=== PATIENT | female | born 1960 | race Caucasian/White ===

== ENCOUNTER 2019-07-16 07:57 | Outpatient (CLI) | payer BC, SELFPAY ==
--- NOTE | ~2019-07-16 | DEXA_ITS ---
Bone Density Report Name: Catherine Velázquez Age: 59 Sex: Female Ethnicity: White Date of : 1960 Indication: osteopenia; height loss; rheumatoid arthritis; Referring Provider: Ida, Marti Lawson Study: Bone densitometry was performed. Exam Date: July 16, 2019 Accession number: [id number] Bone Density: Region BMD T-score Z-score Classification AP Spine (L1-L4) 1.014 -0.3 1.0 Normal Femoral Neck (Left) 0.632 -2.0 -0.8 Osteopenia Total Hip (Left) 0.803 -1.1 -0.3 Osteopenia Total Hip Bilateral Avg 0.782 -1.3 -0.5 Osteopenia Femoral Neck (Right) 0.633 -1.9 -0.7 Osteopenia Total Hip (Right) 0.761 -1.5 -0.6 Osteopenia World Health Organization criteria for BMD impression classify patients as: Normal (T-score at or above -1.0), Osteopenia (T-score between -1.0 and -2.5), or Osteoporosis (T-score at or below -2.5). 10-year Fracture Risk(1): Major Osteoporotic Fracture 11% Hip Fracture 1.4% Reported Risk Factors: [place] (), Neck BMD=0.633, BMI=26.6, rheumatoid arthritis (1) FRAX(R) Version 3.08. Fracture probability calculated for an untreated patient. Fracture probability may be lower if the patient has received treatment. Previous Exams: Region Exam Age BMD T-score BMD Change BMD Change Date g/cm2 vs Baseline vs Previous AP Spine(L1-L4) 07/16/2019 59 1.014 -0.3 -0.154(-13.2%) -0.023(-2.3%)* 12/29/2014 54 1.037 -0.1 -0.130(-11.2%) 0.010(1.0%)# 12/02/2012 52 1.027 -0.2 -0.140(-12.0%) -0.092(-8.2%)# 08/10/2010 50 1.119 0.7 -0.048(-4.1%)* 0.002(0.2%) 06/23/2008 48 1.117 0.6 -0.050(-4.3%)* -0.050(-4.3%)* 05/29/2006 46 1.167 1.1 Total Hip(Left) 07/16/2019 59 0.803 -1.1 -0.069(-7.9%)# -0.047(-5.6%)* 12/29/2014 54 0.851 -0.7 -0.022(-2.5%)# 0.010(1.2%)# 12/02/2012 52 0.841 -0.8 -0.032(-3.6%)# -0.004(-0.4%)# 08/10/2010 50 0.845 -0.8 -0.028(-3.2%)* -0.017(-1.9%) 06/23/2008 48 0.861 -0.7 -0.011(-1.3%) -0.011(-1.3%) 05/29/2006 46 0.873 -0.6 Total Hip(Right) 07/16/2019 59 0.761 -1.5 -0.082(-9.8%)# -0.047(-5.8%)* 12/29/2014 54 0.808 -1.1 -0.035(-4.2%)# 0.037(4.9%)# 12/02/2012 52 0.770 -1.4 -0.073(-8.6%)# -0.066(-7.9%)# 08/10/2010 50 0.836 -0.9 -0.007(-0.8%) -0.004(-0.4%) 06/23/2008 48 0.840 -0.8 -0.003(-0.4%) -0.003(-0.4%) 05/29/2006 46 0.843 -0.8 *Denotes significance at 95% confidence level, LSC for AP Spine = 0.022 g/cm2, LSC for Total Hip = 0.027 g/cm2 Clinical Information Provided by Patient:
== END 2019-07-16 07:58 | disposition home or self-care (01) ==
LOC: ANHIMG 08:01
PROVIDERS: PCP Family Medicine; Visit Provider Nurse Practitioner Obstetrics & Gynecology
DX: Z78.0 Asymptomatic menopausal state (principal); M85.89 Other specified disorders of bone density and structure, multiple sites
CPT/HCPCS: 77080

== ENCOUNTER 2020-03-09 08:28 | Outpatient (CLI) | payer BC, SELFPAY ==
--- NOTE | ~2020-03-09 | MM_ITS ---
EXAMINATION: MM screening [facility] BI w gem HISTORY: Screening TECHNIQUE: Craniocaudal and mediolateral oblique 3-D tomosynthesis images were obtained and synthetic 2-D images were generated. CAD analysis was submitted and interpreted. COMPARISON: Comparison to multiple prior studies sequentially, with oldest reviewed study dated 01/12. BREAST PARENCHYMAL COMPOSITION: There are scattered areas of fibroglandular density. FINDINGS: There is no evidence of suspicious mass, calcification, or architectural distortion to sugg est malignancy in either breast. There has been no suspicious interval change. IMPRESSION: 1. No mammographic evidence of malignancy. 2. Recommend routine screening mammography in one year. BI-RADS Category 1: Negative Reviewed, dictated and finalized at location A. [employer]
== END 2020-03-09 08:29 | disposition home or self-care (01) ==
LOC: ANHIMG 08:35
PROVIDERS: PCP Family Medicine; Visit Provider Nurse Practitioner Obstetrics & Gynecology
DX: Z12.31 Encounter for screening mammogram for malignant neoplasm of breast (principal)
CPT/HCPCS: 77063; 77067

== ENCOUNTER 2020-08-21 17:46 | Emergency (ER) | payer BC, SELFPAY ==
[2020-08-21 17:55] VITALS: BP 111/83; PULSE 80; RESP 12; TEMP 35.7; O2SAT 100
--- NOTE | 2020-08-21 17:59 | ED.WOUNDLAC ---
HPI - Wound/Laceration General Chief Complaint: Wound/Laceration Stated Complaint: Lacration on finger Time Seen by Provider: 08/21/20 18:05 Source: patient and RN notes reviewed Mode of arrival: ambulatory Limitations: no limitations History of Present Illness HPI narrative: 60-year-old female presents concern for laceration to the distal end of the third digit of her left hand. Reports just prior to arrival she was cooking dinner when she cut her hand. Reports she held pressure and applied ice for close to 45 minutes and the bleeding continued. She denies decreased range of motion, sensation, strength in the digit. Reports her last tetanus shot was 9 years ago. Extremity Location: Left: hand Related Data Allergies Allergy/AdvReac Type Severity Reaction Status Date / Time erythromycin base Allergy Intermediate NAUSEA/VOMI Verified 03/24/18 11:12 TING Penicillins Allergy Mild Verified 03/24/18 11:12 doxycycline Allergy Unknown hives, Verified 03/24/18 11:12 itching Sulfa (Sulfonamide Allergy Unknown hives Verified 03/24/18 11:12 Antibiotics) MEPERIDINE HCL Allergy Mild Uncoded 03/24/18 11:12 Review of Systems Review of Systems: Narrative: CONSTITUTIONAL: Denies malaise, chills, sweats, or fever. SKIN: Reports laceration to the distal end of the third digit of the left hand MUSCULOSKELETAL: Denies musculoskeletal pain, decreased strength, decreased sensation NEUROLOGIC: Denies numbness, weakness. All systems reviewed & are unremarkable except as noted in HPI and below PMFSH Comments At time of signature, agree with nursing past medical, surgical, social and family history. There is no relevant family history pertinent to the presenting complaint Exam Narrative: Exam Narrative: GENERAL: Well-appearing, well-nourished, and in no acute distress. HEAD: Normocephalic EYES: PERRLA, conjunctivae clear NECK: Supple. CHEST: Speaks in full sentences. No respiratory distress. HEART: Regular rate and rhythm. Normal and equal peripheral pulses. EXTREMITIES: Third digit of left hand has normal strength and sensation. 5/5 strength with digit flexion, extension. Range of motion normal. No clubbing, cyanosis, or edema noted. No tenderness. Normal digital cascade with flexion of fingers, median, ulnar and radial nerve intact. Normal sensation of each side of finger. Good capillary refill and radial pulse. Distal capillary refill less than 3 seconds. SKIN: Warn, dry, intact, pink. Slightly irregular, superficial laceration noted to the distal lateral end of the third digit of the left hand, not involving the nail bed, no current bleeding NEURO: Alert and oriented x3. PSYCH: Normal mood and affect Course Course Emergency Course: Patient is aware of diagnosis, understands and agrees to treatment plan. Anticipatory guidance given. Patient agrees to follow-up as directed and is aware of reasons to seek care at the emergency department. Portions of this record may have been created with voice recognition software Vital Signs Vital signs: Vital Signs Temperature 96.2 F L 08/21/20 17:55 Pulse Rate 80 08/21/20 17:55 Respiratory Rate 12 08/21/20 17:55 Blood Pressure 111/83 08/21/20 17:55 Pulse Oximetry 100 08/21/20 17:55 Temperature 96.2 F L 08/21/20 17:55 Pulse Rate 80 08/21/20 17:55 Respiratory Rate 12 08/21/20 17:55 Blood Pressure 111/83 08/21/20 17:55 Pulse Oximetry 100 08/21/20 17:55 Reviewed. Procedures Laceration Laceration 1: Date: 08/21/20 Time: 18:10 Site: hand Side (If applicable): left Size (cm): 1 Description: irregular Depth: simple, single layer Pre-repair: irrigated ====== Skin Level ====== Skin layer closed with: dermabond ====== Subcutaneous Layer ====== ====== Muscle Layer ====== ====== Tendon Layer ====== MDM - Wound/Laceration MDM Narrative Medical decision making narrative: Ankita
[2020-08-22] MEDS: TETANUS,DIPHTHERIA,AC PERTUSSIS ADULT (0.5 ML) BOOSTRIX IM (12:57)
[2020-08-22 12:59] VITALS: BP 118/71; PULSE 101; RESP 16; TEMP 36.2; O2SAT 98
--- NOTE | 2020-08-22 13:13 | PC.NURSE ---
1255- Pt returned after f/u with RA doctor for tetanus update. No further complaints at this time.
== END 2020-08-21 18:30 | disposition home or self-care (01) ==
PROVIDERS: Emergency Provider Nurse Practitioner; PCP Family Medicine
DX: S61.213A Laceration without foreign body of left middle finger without damage to nail, initial encounter (principal); W45.8XXA Other foreign body or object entering through skin, initial encounter; Z23 Encounter for immunization; M06.9 Rheumatoid arthritis, unspecified
CPT/HCPCS: 12001; 90471; 90715; 99212; G0463

== ENCOUNTER 2021-03-27 17:21 | Outpatient (CLI) | payer BC, SELFPAY ==
--- NOTE | ~2021-03-27 | MM_ITS ---
EXAMINATION: MM screening [facility] BI w gem HISTORY: Screening mammogram TECHNIQUE: Craniocaudal and mediolateral oblique 3-D tomosynthesis images were obtained and synthetic 2-D images were generated. CAD analysis was submitted and interpreted. COMPARISON: 03/09/2020, 02/02/2019, 01/29/2018 BREAST PARENCHYMAL COMPOSITION: There are scattered areas of fibroglandular density. FINDINGS: There is no evidence of suspicious mass, calcification, or architectural distortion to sugg est malignancy in either breast. There has been no suspicious interval change. IMPRESSION: 1. No mammographic evidence of malignancy. 2. Recommend routine screening mammography in one year. BI-RADS Category 1: Negative Reviewed, dictated and finalized at location A. 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
== END 2021-03-27 17:22 | disposition home or self-care (01) ==
LOC: ANHIMG 17:22
PROVIDERS: Visit Provider Nurse Practitioner Obstetrics & Gynecology
DX: Z12.31 Encounter for screening mammogram for malignant neoplasm of breast (principal)
CPT/HCPCS: 77063; 77067

== ENCOUNTER 2022-05-23 15:15 | Outpatient (CLI) | payer BC, SELFPAY ==
--- NOTE | ~2022-05-23 | MM_ITS ---
EXAMINATION: MM screening [facility] BI w gem HISTORY: Screening mammogram TECHNIQUE: Craniocaudal and mediolateral oblique 3-D tomosynthesis images were obtained and synthetic 2-D images were generated. CAD analysis was submitted and interpreted. COMPARISON: 03/27/2021, 03/09/2020, 02/02/2019 BREAST PARENCHYMAL COMPOSITION: There are scattered areas of fibroglandular density. FINDINGS: No suspicious mass, calcification, or architectural distortion are identified in either yue ast to suggest malignancy. There has been no suspicious interval change. IMPRESSION: 1. No mammographic evidence of malignancy. 2. Recommend routine screening mammography in one year. BI-RADS Category 1: Negative Reviewed, dictated and finalized at location A. E BENDER
== END 2022-05-23 15:16 | disposition home or self-care (01) ==
PROVIDERS: Visit Provider Nurse Practitioner Obstetrics & Gynecology
DX: Z12.31 Encounter for screening mammogram for malignant neoplasm of breast (principal)
CPT/HCPCS: 77063; 77067

== ENCOUNTER 2023-06-28 14:14 | Emergency (ER) | payer BC, SELFPAY ==
[2023-06-28 14:31] VITALS: BP 136/90; PULSE 94; RESP 16; TEMP 35.9; O2SAT 99
--- NOTE | 2023-06-28 15:05 | ED.FEMALEGU ---
HPI - Female Genitourinary General Chief complaint: Urogenital-Female Stated complaint: UTI Time Seen by Provider: 06/28/23 15:05 Source: patient Mode of arrival: ambulatory Limitations: no limitations History of Present Illness HPI Narrative: 63-year-old female presents with complaint of pain, burning, itching, redness, swelling to vaginal area getting progressively worse over the last 3-4 days. Patient reports that she recently saw her primary care physician and was prescribed rectal suppositories for hemorrhoids. States that her hemorrhoids are improving. Has been sitting in a baths with Epson salts to treat hemorrhoids. Began to have itching, irritation to vaginal area so she has done to [id number] Monistat treatments. Symptoms progressed and she called her primary care physician. Was prescribed fluconazole. Took 1st pill today. Patient reports that she has a lot of pain, burning with urination. Unsure if symptoms are a yeast infection because she does not see any discharge or if something else is going on. All systems reviewed and negative except as noted above. Related Data Home Medications Medication Instructions Recorded Confirmed azelastine 0.05 % eye drops See Rx Instructions .Route .COMPLEX 08/21/20 06/28/23 folic acid 1 mg tablet 1 mg PO DAILY 08/21/20 06/28/23 hydroxychloroquine 200 mg tablet 200 mg PO DAILY 08/21/20 06/28/23 levothyroxine 50 mcg tablet 50 mcg PO DAILY 08/21/20 06/28/23 (Euthyrox) methotrexate sodium 2.5 mg tablet 2.5 mg PO DAILY 08/21/20 06/28/23 biotin 5,000 mcg disintegrating 10,000 mcg PO DAILY 10/17/21 06/28/23 tablet calcium carbonate 600 mg calcium 600 mg PO DAILY 10/17/21 06/28/23 (1,500 mg) tablet (Calcium) multivitamin (Daily Multi-Vitamin 1 tablet PO DAILY 10/17/21 06/28/23 tablet) paroxetine HCl 40 mg tablet 40 mg PO DAILY 10/17/21 06/28/23 cetirizine 10 mg capsule (Zyrtec) 10 mg PO DAILY 06/12/22 06/28/23 etanercept 50 mg/mL (1 mL) 50 mg subcut WEEKLY 06/12/22 06/28/23 subcutaneous syringe (Enbrel) nabumetone 500 mg tablet 500 mg PO BID 06/12/22 06/28/23 atorvastatin 20 mg tablet 20 mg PO DAILY 06/28/23 06/28/23 bupropion HCl 150 mg 24 hr tablet, 150 mg PO DAILY 06/28/23 06/28/23 extended release docusate sodium 100 mg capsule 100 mg PO DAILY 06/28/23 06/28/23 fluconazole 150 mg tablet 150 mg PO DAILY 06/28/23 06/28/23 hydrocortisone 2.5 % topical cream See Rx Instructions .Route .COMPLEX 06/28/23 06/28/23 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 EYES: Denies visual changes, redness, or discharge. ENT: Denies rhinorrhea, congestion, sore throat, or otalgia. CARDIOVASCULAR: Denies chest pain, palpitations, or edema. RESPIRATORY: Denies cough or dyspnea. GASTROINTESTINAL: Denies abdominal pain, nausea, vomiting, or diarrhea. GENITOURINARY: Reports dysuria. Denies hematuria. reports redness, swelling, itching, pain and to labia. SKIN: Denies rash or itching. MUSCULOSKELETAL: Denies back pain, joint pain, or myalgia. NEUROLOGIC: Denies headache, numbness, or weakness. PSYCHIATRIC: Denies anxiety or depression. All other systems reviewed are negative, except as documented in HPI. [facility] Social History Social History Smoking status: Never smoker Gender identity (if verbalized by the patient): Female Comments At time of signature, agree with nursing past medical, surgic
== END 2023-06-28 15:37 | disposition home or self-care (01) ==
PROVIDERS: Emergency Provider Nurse Practitioner Family
DX: N76.0 Acute vaginitis (principal); N39.0 Urinary tract infection, site not specified; E78.00 Pure hypercholesterolemia, unspecified; K21.9 Gastro-esophageal reflux disease without esophagitis; M06.9 Rheumatoid arthritis, unspecified; F41.9 Anxiety disorder, unspecified; E07.9 Disorder of thyroid, unspecified
CPT/HCPCS: 81003; 87070; 87086; 99213; G0463

== ENCOUNTER 2023-07-01 08:35 | Outpatient (CLI) | payer BC, SELFPAY ==
--- NOTE | ~2023-07-01 | MM_ITS ---
EXAMINATION: MM screening [facility] BI w gem HISTORY: Screening TECHNIQUE: Craniocaudal and mediolateral oblique 3-D tomosynthesis images were obtained and synthetic 2-D images were generated. CAD analysis was submitted and interpreted. COMPARISON: Comparison to multiple prior studies sequentially, with oldest reviewed study dated 01/24. BREAST PARENCHYMAL COMPOSITION: There are scattered areas of fibroglandular density. FINDINGS: There is no evidence of suspicious mass, calcification, or architectural distortion to sugg est malignancy in either breast. There has been no suspicious interval change. IMPRESSION: 1. No mammographic evidence of malignancy. 2. Recommend routine screening mammography in one year. BI-RADS Category 1: Negative Reviewed, dictated and finalized at location A. NCIAL ADVOCATE
== END 2023-07-01 08:36 | disposition home or self-care (01) ==
LOC: ANHIMG 08:36
DX: Z12.31 Encounter for screening mammogram for malignant neoplasm of breast (principal)
CPT/HCPCS: 77063; 77067

== ENCOUNTER 2023-11-25 15:14 | Outpatient (CLI) | payer BC, SELFPAY ==
--- NOTE | ~2023-11-25 | XR_ITS ---
XR hip LT min 2V Ordering provider: Jossie Burks, NEDA History: . PAIN OF LEFT HIP JOINT FOR 15+ YRS . Comparison: None. FINDINGS: BONES: No acute fracture or dislocation. HIP JOINT SPACES: Normal. SACROILIAC JOINT SPACES/LUMBAR SPINE: The sacroiliac joint spaces are normal. Mild degenerative crawley es of the visualized lower lumbar spine. PUBIC SYMPHYSIS: Normal. SOFT TISSUES: Normal. IMPRESSION: No acute osseous abnormality pelvis and left hip. Reviewed, dictated and finalized at location A.
--- NOTE | ~2023-11-25 | XR_ITS ---
EXAM: XR lumbar spine 2-3V DATE: 11/25/2023 15:35 HISTORY: PAIN OF LEFT HIP JOINT;LBP . COMPARISON: None available. FINDINGS: Cholecystomy clips. 5 nonrib-bearing lumbar-type vertebral bodies. Pedicles intact. Minimal 2 mm anterolisthesis at L3-4. Otherwise normal vertebral body alignment. Vertebral body heights pres erved. Multilevel mild disc space narrowing and marginal osteophytosis. Moderate facet hypertrophy at L2-3 and L3-4. Severe facet hypertrophy at L4-5 and L5-S1. No fracture or dislocation. Aortic athero sclerotic calcification without evident aneurysm. IMPRESSION: Grade 1 anterolisthesis at L3-4. Multilevel mild degenerative disc disease. Multilevel mo derate and severe facet arthropathy. Reviewed, dictated and finalized at location K. IMPRESSION: Grade 1 anterolisthesis at L3-4. Multilevel mild degenerative disc disease. Multilevel moderate and severe facet arthropathy.
== END 2023-11-25 15:15 | disposition home or self-care (01) ==
LOC: ANHIMG 15:15
PROVIDERS: Visit Provider Physician Assistant
DX: M43.16 Spondylolisthesis, lumbar region (principal); M51.36 Other intervertebral disc degeneration, lumbar region; M47.896 Other spondylosis, lumbar region; M47.897 Other spondylosis, lumbosacral region; M25.552 Pain in left hip
CPT/HCPCS: 72100; 73502

== ENCOUNTER 2023-12-25 06:40 | Outpatient (CLI) | payer BC, SELFPAY ==
--- NOTE | ~2023-12-25 | MR_ITS ---
EXAMINATION: MR lumbar spine wo con DATE: 12/25/2023 07:14 INDICATION: Lumbar degenerative intervertebral disc disease with chronic low back pain. TECHNIQUE: Magnetic resonance imaging (MRI) of the lumbar spine was performed without intravenous con trast. Sequences included sagittal T2-weighted FSE, sagittal T2-weighted FS FSE, sagittal T1-weighted FSE, and axial T2-weighted FSE. COMPARISON: None FINDINGS: Alignment is normal. Vertebral body heights are normal. T1 hyperintense hemangiomas at T11 L1 and L5. Otherwise normal marrow signal. Mild disc height loss and mild disc desiccation at L2-L3 through L5- S1. Annular fissure at L2-L3. The conus medullaris terminates at L2-L3. There is normal signal in the caudal spinal cord. Paravertebral soft tissues are unremarkable. The following disc levels are speci fically discussed: T12-L1: The disc does not extend beyond the endplate margin. There is mild bilateral facet joint oste oarthritis. There is no neural foraminal stenosis. There is no central canal stenosis. L1-L2: The disc does not extend beyond the endplate margin. There is mild bilateral facet joint osteo arthritis. There is no neural foraminal stenosis. There is no central canal stenosis. L2-L3: Disc is bulging. There is mild left and moderate right facet joint osteoarthritis. There is mi ld bilateral neural foraminal stenosis. There is mild central canal stenosis. L3-L4: Disc is mildly bulging. There is severe bilateral facet joint osteoarthritis. There is mild bi lateral neural foraminal stenosis. There is minimal central canal stenosis. L4-L5: Disc is mildly bulging. There is moderate left and severe right facet joint osteoarthritis. Th ere is mild bilateral neural foraminal stenosis. There is minimal central canal stenosis. L5-S1: Disc is mildly bulging. There is moderate right and severe left facet joint osteoarthritis. Th ere is mild bilateral neural foraminal stenosis. There is no central canal stenosis. IMPRESSION: 1. Mild lumbar spondylosis. Reviewed, dictated and finalized at location A. IMPRESSION: 1. Mild lumbar spondylosis.
== END 2023-12-25 06:41 | disposition home or self-care (01) ==
PROVIDERS: Visit Provider Physician Assistant
DX: M51.36 Other intervertebral disc degeneration, lumbar region (principal); M47.896 Other spondylosis, lumbar region
CPT/HCPCS: 72148

== ENCOUNTER 2024-08-24 08:48 | Outpatient (CLI) | payer BC, SELFPAY ==
--- NOTE | ~2024-08-24 | MM_ITS ---
EXAMINATION: MM screening arnoldo BI w gem HISTORY: Screening TECHNIQUE: Craniocaudal and mediolateral oblique 3-D tomosynthesis images were obtained and synthetic 2-D images were generated. CAD analysis was submitted and interpreted. COMPARISON: Comparison to multiple prior studies sequentially, with oldest reviewed study dated 01/29. BREAST PARENCHYMAL COMPOSITION: Not Dense: The breasts are almost entirely fatty. FINDINGS: There is no evidence of suspicious mass, calcification, or architectural distortion to sugg est malignancy in either breast. There has been no suspicious interval change. IMPRESSION: 1. No mammographic evidence of malignancy. 2. Recommend routine screening mammography in one year. BI-RADS Category 1: Negative Reviewed, dictated and finalized at location A.
--- OUTSIDE RECORDS SUMMARY | 2024-08-24 09:18 | XMS_ITS | Data Portability ---
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 Plan of Treatment Reminders Order Date Submit Date Provider Last Modified By Organization Details Last Modified Time Details Appointments ANY 15 2024 10:00A M NEDA Osullivan Not available Not available Not available Lab CBC 2024 025 [employer] [facility], [address], [place], [address], 06/10/2024 14:45:33 CMP, serum or plasma 2024 025 [employer] [facility], [address], [place], [address], 06/10/2024 14:45:32 TSH + free T4, serum 2024 025 [employer] [facility], [address], [place], [address], 06/10/2024 14:45:31 lipid panel, serum 2024 025 [employer] [facility], [address], [place], [address], 06/10/2024 14:45:31 CBC w/ auto diff 2023 024 [facility], [address], [place], [address], 11/22/2023 09:45:02 CMP, serum or plasma 2023 024 [facility], [address], [place], [address], 11/22/2023 09:45:01 lipid panel, serum 2023 024 [facility], [address], [place], [address], 11/22/2023 09:45:00 TSH + free T4, serum 2023 024 [facility], [address], [place], [address], 11/22/2023 09:45:00 unlisted lab - sureswab( R) advanced vaginitis plus, tma 2023 024 [facility], [address], [place], [address], 07/10/2023 22:56:42 urinalysi s, dipstick 2023 024 [facility] In-Office Order, Internal Use Only DO Not Attach Compendium DO Not Attach Compendium, Do Not Delete/merge, [id number] 07/09/2023 11:55:48 culture, urine 2023 024 [facility], [address], [place], [address], 07/10/2023 22:56:43 Referral otolaryng ologist referral 2024 025 [facility] [place] [facility], [address], [place], [address], 06/29/2024 01:27:16 Procedures None recorded. Surgeries None recorded. Imaging XR, hip, unilatera l, 2 or 3 view 2023 024 [facility], [address], [place], [address], 11/26/2023 16:53:10 XR, lumbosacr al spine, 2 or 3 view 2023 024 [facility], [address], [place], [address], 11/26/2023 17:08:09 Medication Orders bupropion HCl XL 150 mg 24 hr tablet, extended release 2024 025 [facility], [address] [place] [address], [address], 06/09/2024 11:05:46 atorvasta tin 40 mg tablet 2024 025 [facility], [address] [place] [address], [address], 06/09/2024 11:08:57 Kenalog 40 mg/mL suspensio n for injection 2023 024 Not available 06/09/2024 09:51:07 benzonata te 100 mg capsule 2023 024 [facility], [address] [address], [place], [address], 11/21/2023 10:01:13 codeine 10 mg-guaife nesin 100 mg/5 mL oral liquid 2023 024 [facility], [facility] [place], [address], 11/21/2023 10:01:16 albuterol sulfate HFA 90 mcg/actua tion aerosol inhaler 2023 025 [facility], [facility] [place], [address], 06/09/2024 10:52:51 Medrol (Dimas) 4 mg tablets in a dose pack 2023 024 [facility], [address] [place] [address], [address], 11/21/2023 10:01:27 azithromy paulette 250 mg tablet 2023 024 [facility], [address] [place] [address], [address], 11/21/2023 10:00:59 fluconazo le 150 mg tablet [address], [address] [place] [address], [address], 07/25/2023 10:19:12 hydroxyzi ne HCl 10 mg tablet [address], [address] [place] [address], [address], 07/25/2023 10:19:16 hydrocort isone 2.5 % topical cream with perineal applicato r 2023 024 [facility], [address] [place] [address], [address], 11/21/2023 10:57:27 Colace 100 mg capsule [address], [address] [place] [address], [address], 06/09/2024 10:53:02 bupropion HCl XL 150 mg 24 hr tablet, extended release 2023 025 [facility], [address] [place] [address], [address], 06/09/2024 10:53:16 Patient TargetsNo targets recorded. Patient Instructions Encounter Date Encounter Id Patient Instructions Last Modified By Organization Details Last Modified Time 06/24/2023 [id number] hemorrhoids: car e instructions [facility] Not available 06/24/2023 14:51:22 11/21/2023 [id number] A healthy lifestyle: care instructions Not available 11/21/2023 10:57:34 06/09/2024 [id number] A healthy lifestyle: care instructions Not available 06/09/2024 11:05:35 middle ear fluid : care instructions Not available 06/09/2024 11:06:01 Reason for Referral [employer] Referral fo r Middle ear effusion Referring Physician: Shashank Burks, Family Medicine, Encounter Date: 06/09/2024 Results Created Date Observation Date Name Description Value Unit Range Abnormal Flag Note LastModifiedBy Organization Detail LastModifiedTime 07/09/19 24 07/10/2023 SURES WAB(R ) ADVAN HERON VAGIN ITIS PLUS, TMA sureswab(R) adv bacterial vaginosis (bv), tma NEGATI VE negati ve normal Not Available [address], [address], 07/10/2023 22:56:42 07/09/19 24 07/10/2023 SURES WAB(R ) ADVAN HERON VAGIN ITIS PLUS, TMA lizet species NOT DETECT ED not detect ed normal Not Available [address], [address], 07/10/2023 22:56:42 07/09/19 24 07/10/2023 SURES WAB(R ) ADVAN HERON VAGIN ITIS PLUS, TMA lizet glabrata NOT DETECT ED not detect ed normal Betsy da speci es C. albic ans, C. tropi calis , C. parap jose is, and/o r C. dubli niens is can be detec bonnie, but not diffe renti ated, in the Betsy da spp. resul t. Not Available [address], [address], 07/10/2023 22:56:42 07/09/19 24 07/10/2023 SURES WAB(R ) ADVAN HERON VAGIN ITIS PLUS, TMA trichomonas vaginalis (TV), tma NOT DETECT ED not detect ed normal Not Available [address], [address], 07/10/2023 22:56:42 07/09/19 24 07/10/2023 SURES WAB(R ) ADVAN HERON VAGIN ITIS PLUS, TMA chlamydia trachomatis RNA, tma, urogenital NOT DETECT ED not detect ed normal Not Available [facility] [address] [address] [place], [address], 07/10/2023 22:56:42 07/09/19 24 07/10/2023 SURES WAB(R ) ADVAN HERON VAGIN ITIS PLUS, TMA neisseria gonorrhoeae RNA, tma, urogenital NOT DETECT ED not detect ed normal For addit ional rogelio clayton refer to https ://ed ati on.qu pamJobSpice/f aq/FA Q154 (This link is being provi ded for maxim pepe/ xavier ordaz purpo ses only. ) Not Available [address], [address], 07/10/2023 22:56:42 07/09/19 24 07/10/2023 CULTU RE, URINE , ROUTI NE culture, urine, routine SEE NOTE CULTU RE, URINE , ROUTI NE Micro Numbe r: [id number] Test Statu s: Final Speci men Sourc e: Urine Speci men Quali ty: Adequ ate Resul t: No Growt h Not Available [address], [address], 07/10/2023 22:56:43 07/09/19 24 07/09/2023 urina lysis , dipst ick Leukocytes Trace Not Available In-Offi ce Order Internal Use Only DO Not Attach Compendium DO Not Attach Compendium, Do Not Delete/merge, [id number] 07/09/2023 10:48:57 07/09/19 24 07/09/2023 urina lysis , dipst ick Nitrite negati ve Not Available In-Office Order Internal Use Only DO Not Attach Compendium DO Not Attach Compendium, Do Not Delete/merge, 07/09/2023 10:48:57 07/09/19 24 07/09/2023 urina lysis , dipst ick Urobilinogen .2 Not Available In-Of fice Order Internal Use Only DO Not Attach Compendium DO Not Attach Compendium, Do Not Delete/merge, 07/09/2023 10:48:57 07/09/19 24 07/09/2023 urina lysis , dipst ick Protein Trace Not Available In-Office Order Internal Use Only DO Not Attach Compendium DO Not Attach Compendium, Do Not Delete/merge, 07/09/2023 10:48:57 07/09/19 24 07/09/2023 urina lysis , dipst ick pH 5.5 Not Available In-Office Order Internal Use Only DO Not Attach Compendium DO Not Attach Compendium, Do Not Delete/merge, 07/09/2023 10:48:57 07/09/19 24 07/09/2023 urina lysis , dipst ick Blood Negati ve Not Available In-Office Order Internal Use Only DO Not Attach Compendium DO Not Attach Compendium, Do Not Delete/merge, 07/09/2023 10:48:57 07/09/19 24 07/09/2023 urina lysis , dipst ick Specific [place] 1.030 Not Available In-Off ice Order Internal Use Only DO Not Attach Compendium DO Not Attach Compendium, Do Not Delete/merge, 07/09/2023 10:48:57 07/09/19 24 07/09/2023 urina lysis , dipst ick Ketone Trace Not Available In-Office Order Internal Use Only DO Not Attach Compendium DO Not Attach Compendium, Do Not Delete/merge, 07/09/2023 10:48:57 07/09/19 24 07/09/2023 urina lysis , dipst ick Bilirubin Negati ve Not Available In-Office Order Internal Use Only DO Not Attach Compendium DO Not Attach Compendium, Do Not Delete/merge, 2024 10:48:57 07/09/19 24 07/09/2023 urina lysis , dipst ick Glucose Negati ve Not Available In-Office Order Internal Use Only DO Not Attach Compendium DO Not Attach Compendium, Do Not Delete/merge, [id number] 07/09/2023 10:48:57 07/09/19 24 07/09/2023 urina lysis , dipst ick Appearance Clear Not Available In-Offi ce Order Internal Use Only DO Not Attach Compendium DO Not Attach Compendium, Do Not Delete/merge, [id number] 07/09/2023 10:48:57 07/09/19 24 07/09/2023 urina lysis , dipst ick Color Yellow Not Available In-Office Order Internal Use Only DO Not Attach Compendium DO Not Attach Compendium, Do Not Delete/merge, 07/09/2023 10:48:57 11/21/19 24 11/22/2023 LIPID PANEL , STAND OLINDA cholesterol, total 169 mg/dL <200 normal Not Available [address], [address], 11/22/2023 09:44:59 11/21/19 24 11/22/2023 LIPID PANEL , STAND OLINDA HDL cholesterol 66 mg/dL > or = 50 normal Not Available [address] [place], [address], 11/22/2023 09:44:59 11/21/19 24 11/22/2023 LIPID PANEL , STAND OLINDA triglyceride s 205 mg/dL <150 high If a non-f astin g speci men was colle cted, consi ambar repea t trigl yceri de testi ng on a fasti ng speci men if clini kevin indic ated. Kevin de la rosa et al. J. of Clin. Lipid ol. 2015; 9:129 -169. Not Available [address] [address] [place], [address], 11/22/2023 09:44:59 11/21/19 24 11/22/2023 LIPID PANEL , STAND OLINDA LDL-choleste rol 73 mg/dL _(erasto c) normal Refer ence range : <100 Kayla able range <100 mg/dL for prima ry preve ntion ; <70 mg/dL for patie nts with CHD or diabe tic patie nts with > or = 2 CHD risk facto rs. LDL-C is now calcu lated using the [facility] n-Hop kins calcu yuki n, which is a valid ated novel metho d provi mercedes tommy r accur acy than the Fried clayton equat ion in the estim ation of LDL-C . Conchita pepe SS et al. ANDREW. 2013; 310(1 9): 2061- 2068 (http ://ed ucati on.Key Ring. SlapVid/f aq/FA Q164) Not Available [facility] [address] [address] [place], [address], 11/22/2023 09:44:59 11/21/19 24 11/22/2023 LIPID PANEL , STAND OLINDA chol/HDLC ratio 2.6 (calc ) <5.0 normal Not Available [employer] [address] [address] [place], [address], 11/22/2023 09:44:59 11/21/19 24 11/22/2023 LIPID PANEL , STAND OLINDA non HDL cholesterol 103 mg/dL _(erasto c) <130 normal For patie nts with diabe leslee plus 1 major ASCVD risk facto r, treat ing to a non-H DL-C goal of <100 mg/dL (LDL- C of <70 mg/dL ) is consi dered a thera peuti c optio n. Not Available [employer] [address] [address] [place], [address], 11/22/2023 09:44:59 11/21/1911/22/2023 TSH+F REE T4 TSH 1.03 mIU/L 0.40-4 .50 normal Not Available [employer] [address] [address] [place], [address], 11/22/2023 09:45:00 11/21/19 24 11/22/2023 TSH+F REE T4 T4, free 1.1 NG/dL 0.8-1. 8 normal Not Available [address], [address], 11/22/2023 09:45:00 11/21/19 24 11/22/2023 COMPR EHENS KRYSTINA METAB OLIC PANEL glucose 75 mg/dL 65-99 normal Fasti ng refer ence inter riana Not Available [address], [address], 11/22/2023 09:45:01 11/21/19 24 11/22/2023 COMPR EHENS KRYSTINA METAB OLIC PANEL urea nitrogen (BUN) 15 mg/dL 7-25 normal Not Available [address], [address], 11/22/2023 09:45:01 11/21/19 24 11/22/2023 COMPR EHENS KRYSTINA METAB OLIC PANEL creatinine 1.05 mg/dL 0.50-1 .05 normal Not Available [address], [address], 11/22/2023 09:45:01 11/21/19 24 11/22/2023 COMPR EHENS KRYSTINA METAB OLIC PANEL eGFR 60 mL/mi n/1.7 3m2 > or = 60 normal Not Available [address], [address], 11/22/2023 09:45:01 11/21/19 24 11/22/2023 COMPR EHENS KRYSTINA METAB OLIC PANEL BUN/creatini ne ratio SEE NOTE: (calc ) 6-22 Not Repor bonnie: BUN and Creat inine are withi n refer ence range . Not Available [address], [address], 11/22/2023 09:45:01 11/21/19 24 11/22/2023 COMPR EHENS KRYSTINA METAB OLIC PANEL sodium 143 mmol/ L 135-14 6 normal Not Available [address], [address], 11/22/2023 09:45:01 11/21/19 24 11/22/2023 COMPR EHENS KRYSTINA METAB OLIC PANEL potassium 4.6 mmol/ L 3.5-5. 3 normal Not Available [address], [address], 11/22/2023 09:45:01 11/21/19 24 11/22/2023 COMPR EHENS KRYSTINA METAB OLIC PANEL chloride 107 mmol/ L 98-110 normal Not Available [address], [address], 11/22/2023 09:45:01 11/21/19 24 11/22/2023 COMPR EHENS KRYSTINA METAB OLIC PANEL carbon dioxide 28 mmol/ L 20-32 normal Not Available [address], [address], 11/22/2023 09:45:01 11/21/19 24 11/22/2023 COMPR EHENS KRYSTINA METAB OLIC PANEL calcium 9.2 mg/dL 8.6-10 .4 normal Not Available [address], [address], 11/22/2023 09:45:01 11/21/19 24 11/22/2023 COMPR EHENS KRYSTINA METAB OLIC PANEL protein, total 6.3 g/dL 6.1-8. 1 normal Not Available [address], [address], 11/22/2023 09:45:01 11/21/19 24 11/22/2023 COMPR EHENS KRYSTINA METAB OLIC PANEL albumin 4.2 g/dL 3.6-5. 1 normal Not Available [address] [place], [address], 11/22/2023 09:45:01 11/21/19 24 11/22/2023 COMPR EHENS KRYSTINA METAB OLIC PANEL globulin 2.1 g/dL_ (calc ) 1.9-3. 7 normal Not Available [address], [address], 11/22/2023 09:45:01 11/21/19 24 11/22/2023 COMPR EHENS KRYSTINA METAB OLIC PANEL albumin/glob ulin ratio 2.0 (calc ) 1.0-2. 5 normal Not Available [address], [address], 11/22/2023 09:45:01 11/21/19 24 11/22/2023 COMPR EHENS KRYSTINA METAB OLIC PANEL bilirubin, total 0.3 mg/dL 0.2-1. 2 normal Not Available [address], [address], 11/22/2023 09:45:01 11/21/19 24 11/22/2023 COMPR EHENS KRYSTINA METAB OLIC PANEL alkaline phosphatase 69 U/L 37-153 normal Not Available [address], [address], 11/22/2023 09:45:01 11/21/19 24 11/22/2023 COMPR EHENS KRYSTINA METAB OLIC PANEL AST 18 U/L 10-35 normal Not Available [address], [address], 11/22/2023 09:45:01 11/21/19 24 11/22/2023 COMPR EHENS KRYSTINA METAB OLIC PANEL ALT 15 U/L 6-29 normal Not Available [address], [address], 11/22/2023 09:45:01 11/21/19 24 11/22/2023 CBC (INCL UDES DIFF/ PLT) white blood cell count 5.0 thous and/u L 3.8-10 .8 normal Not Available [address], [address], 11/22/2023 09:45:02 11/21/19 24 11/22/2023 CBC (INCL UDES DIFF/ PLT) red blood cell count 4.13 xander on/uL 3.80-5 .10 normal Not Available [address], [address], 11/22/2023 09:45:02 11/21/19 24 11/22/2023 CBC (INCL UDES DIFF/ PLT) hemoglobin 14.4 g/dL 11.7-1 5.5 normal Not Available [address], [address], 11/22/2023 09:45:02 11/21/19 24 11/22/2023 CBC (INCL UDES DIFF/ PLT) hematocrit 42.6 % 35.0-4 5.0 normal Not Available [address], [address], 11/22/2023 09:45:02 11/21/19 24 11/22/2023 CBC (INCL UDES DIFF/ PLT) MCV 103.1 fL 80.0-1 00.0 high Not Available [address], [address], 11/22/2023 09:45:02 11/21/19 24 11/22/2023 CBC (INCL UDES DIFF/ PLT) MCH 34.9 pg 27.0-3 3.0 high Not Available [address], [address], 11/22/2023 09:45:02 11/21/19 24 11/22/2023 CBC (INCL UDES DIFF/ PLT) MCHC 33.8 g/dL 32.0-3 6.0 normal Not Available [address], [address], 11/22/2023 09:45:02 11/21/19 24 11/22/2023 CBC (INCL UDES DIFF/ PLT) RDW 12.1 % 11.0-1 5.0 normal Not Available [address], [address], 11/22/2023 09:45:02 11/21/19 24 11/22/2023 CBC (INCL UDES DIFF/ PLT) platelet count 207 thous and/u L 140-40 0 normal Not Available [address], [address], 11/22/2023 09:45:02 11/21/19 24 11/22/2023 CBC (INCL UDES DIFF/ PLT) MPV 9.8 fL 7.5-12 .5 normal Not Available [address], [address], 11/22/2023 09:45:02 11/21/19 24 11/22/2023 CBC (INCL UDES DIFF/ PLT) absolute neutrophils 2390 cells /uL 1500-7 800 normal Not Available [address], [address], 11/22/2023 09:45:02 11/21/19 24 11/22/2023 CBC (INCL UDES DIFF/ PLT) absolute lymphocytes 2095 cells /uL 850-39 00 normal Not Available [address], [address], 11/22/2023 09:45:02 11/21/19 24 11/22/2023 CBC (INCL UDES DIFF/ PLT) absolute monocytes 485 cells /uL 200-95 0 normal Not Available [address], [address], 11/22/2023 09:45:02 11/21/19 24 11/22/2023 CBC (INCL UDES DIFF/ PLT) absolute eosinophils 0 cells /uL 15-500 low Not Available [address], [address], 11/22/2023 09:45:02 11/21/19 24 11/22/2023 CBC (INCL UDES DIFF/ PLT) absolute basophils 30 cells /uL 0-200 normal Not Available [facility] [address], [address], 11/22/2023 09:45:02 11/21/19 24 11/22/2023 CBC (INCL UDES DIFF/ PLT) neutrophils 47.8 % normal Not Available [facility] [address], [address], 11/22/2023 09:45:02 11/21/19 24 11/22/2023 CBC (INCL UDES DIFF/ PLT) lymphocytes 41.9 % normal Not Available [facility] [address], [address], 11/22/2023 09:45:02 11/21/19 24 11/22/2023 CBC (INCL UDES DIFF/ PLT) monocytes 9.7 % normal Not Available [facility] [address], [address], 11/22/2023 09:45:02 11/21/19 24 11/22/2023 CBC (INCL UDES DIFF/ PLT) eosinophils 0.0 % normal Not Available [facility] [address], [address], 11/22/2023 09:45:02 11/21/19 24 11/22/2023 CBC (INCL UDES DIFF/ PLT) basophils 0.6 % normal Not Available [facility] [address], [address], 11/22/2023 09:45:02 02/12/20 24 02/12/2024 LIPID PANEL , STAND OLINDA cholesterol, total 166 mg/dL <200 normal Not Available [address] [address] [place], [address], 02/12/2024 17:33:53 02/12/20 24 02/12/2024 LIPID PANEL , STAND OLINDA HDL cholesterol 72 mg/dL > or = 50 normal Not Available [address] [address] [place], [address], 02/12/2024 17:33:53 02/12/20 24 02/12/2024 LIPID PANEL , STAND OLINDA triglyceride s 134 mg/dL <150 normal Not Available [address] [address] [place], [address], 02/12/2024 17:33:53 02/12/20 24 02/12/2024 LIPID PANEL , STAND OLINDA LDL-choleste rol 72 mg/dL _(erasto c) normal Refer ence range : <100 Kayla able range <100 mg/dL for prima ry preve ntion ; <70 mg/dL for patie nts with CHD or diabe tic patie nts with > or = 2 CHD risk facto rs. LDL-C is now calcu lated using the [place] n-Hop kins calcu yuki n, which is a valid ated novel metho d provi ding tommy r accur acy than the Fried clayton equat ion in the estim ation of LDL-C . Conchita pepe SS et al. ANDREW. 2013; 310(1 9): 2061- 2068 (http ://ed ucati on.Qu Kaela Cannonballs. com/f aq/FA Q164) Not Available [facility] [address] [address] [place], [address], 02/12/2024 17:33:53 02/12/20 24 02/12/2024 LIPID PANEL , STAND OLINDA chol/HDLC ratio 2.3 (calc ) <5.0 normal Not Available [address] [address] [place], [address], 02/12/2024 17:33:53 02/12/20 24 02/12/2024 LIPID PANEL , STAND OLINDA non HDL cholesterol 94 mg/dL _(erasto c) <130 normal For patie nts with diabe leslee plus 1 major ASCVD risk facto r, treat ing to a non-H DL-C goal of <100 mg/dL (LDL- C of <70 mg/dL ) is consi zina abbott optio n. Not Available [address] [address] [place], [address], 02/12/2024 17:33:53 02/12/20 24 02/12/2024 AST AST 22 U/L 10-35 normal Not Available [address] [address] [place], [address], 02/12/2024 17:33:54 06/09/19 25 06/10/2024 LIPID PANEL , STAND OLINDA cholesterol, total 167 mg/dL <200 normal Not Available [address] [address] [place], [address], 06/10/2024 14:45:31 06/09/19 25 06/10/2024 LIPID PANEL , STAND OLINDA HDL cholesterol 70 mg/dL > or = 50 normal Not Available [facility] [address] [address] [place], [address], 06/10/2024 14:45:31 06/09/19 25 06/10/2024 LIPID PANEL , STAND OLINDA triglyceride s 153 mg/dL <150 high Not Available [facility] [address] [address] [place], [address], 06/10/2024 14:45:31 06/09/19 25 06/10/2024 LIPID PANEL , STAND OLINDA LDL-choleste rol 73 mg/dL _(erasto c) normal Refer ence range : <100 Kayla able range <100 mg/dL for prima ry preve ntion ; <70 mg/dL for patie nts with CHD or diabe tic patie nts with > or = 2 CHD risk facto rs. LDL-C is now calcu lated using the [facility] kins belkis pepe, which is a valid ated novel chilo morse than the Fried clayton bansalyojana ion in the estim ation of LDL-C . Conchita pepe SS et al. ANDREW. 2013; 310(1 9): 2061- 2068 (http ://ed ucati on.Qu pamDi Cannonballs. com/f aq/FA Q164) Not Available [facility] [address] [address] [place], [address], 06/10/2024 14:45:31 06/09/19 25 06/10/2024 LIPID PANEL , STAND OLINDA chol/HDLC ratio 2.4 (calc ) <5.0 normal Not Available [address], [address], 06/10/2024 14:45:31 06/09/19 25 06/10/2024 LIPID PANEL , STAND OLINDA non HDL cholesterol 97 mg/dL _(erasto c) <130 normal For patie nts with diabe leslee plus 1 major ASCVD risk facto r, treat ing to a non-H DL-C goal of <100 mg/dL (LDL- C of <70 mg/dL ) is celena chavarriao n. Not Available [facility] [address], [address], 06/10/2024 14:45:31 06/09/19 25 06/10/2024 TSH+F REE T4 TSH 1.30 mIU/L 0.40-4 .50 normal Not Available [facility] [address], [address], 06/10/2024 14:45:31 06/09/19 25 06/10/2024 TSH+F REE T4 T4, free 1.4 NG/dL 0.8-1. 8 normal Not Available [facility] [address] [place], [address], 06/10/2024 14:45:31 06/09/19 25 06/10/2024 COMPR EHENS KRYSTINA METAB OLIC PANEL glucose 101 mg/dL 65-99 high Fasti ng refer ence inter riana For someo ne witho ut known diabe leslee, a gluco se value betwe en 100 and 125 mg/dL is consi stent with predi abete s and shoul d be confi rmed with a follo w-up test. Not Available [address], [address], 06/10/2024 14:45:32 06/09/19 25 06/10/2024 COMPR EHENS KRYSTINA METAB OLIC PANEL urea nitrogen (BUN) 14 mg/dL 7-25 normal Not Available [address], [address], 06/10/2024 14:45:32 06/09/19 25 06/10/2024 COMPR EHENS KRYSTINA METAB OLIC PANEL creatinine 0.93 mg/dL 0.50-1 .05 normal Not Available [facility] [address], [address], 06/10/2024 14:45:32 06/09/19 25 06/10/2024 COMPR EHENS KRYSTINA METAB OLIC PANEL eGFR 69 mL/mi n/1.7 3m2 > or = 60 normal Not Available [facility] [address], [address], 06/10/2024 14:45:32 06/09/19 25 06/10/2024 COMPR EHENS KRYSTINA METAB OLIC PANEL BUN/creatini ne ratio SEE NOTE: (calc ) 6-22 Not Repor bonnie: BUN and Creat inine are withi n refer ence range . Not Available [facility] [address], [address], 06/10/2024 14:45:32 06/09/19 25 06/10/2024 COMPR EHENS KRYSTINA METAB OLIC PANEL sodium 140 mmol/ L 135-14 6 normal Not Available [address], [address], 06/10/2024 14:45:32 06/09/19 25 06/10/2024 COMPR EHENS KRYSTINA METAB OLIC PANEL potassium 4.5 mmol/ L 3.5-5. 3 normal Not Available [address], [address], 06/10/2024 14:45:32 06/09/19 25 06/10/2024 COMPR EHENS KRYSTINA METAB OLIC PANEL chloride 104 mmol/ L 98-110 normal Not Available [address], [address], 06/10/2024 14:45:32 06/09/19 25 06/10/2024 COMPR EHENS KRYSTINA METAB OLIC PANEL carbon dioxide 25 mmol/ L 20-32 normal Not Available [address], [address], 06/10/2024 14:45:32 06/09/19 25 06/10/2024 COMPR EHENS KRYSTINA METAB OLIC PANEL calcium 9.6 mg/dL 8.6-10 .4 normal Not Available [address], [address], 06/10/2024 14:45:32 06/09/19 25 06/10/2024 COMPR EHENS KRYSTINA METAB OLIC PANEL protein, total 6.7 g/dL 6.1-8. 1 normal Not Available [address], [address], 06/10/2024 14:45:32 06/09/19 25 06/10/2024 COMPR EHENS KRYSTINA METAB OLIC PANEL albumin 4.3 g/dL 3.6-5. 1 normal Not Available [address], [address], 06/10/2024 14:45:32 06/09/19 25 06/10/2024 COMPR EHENS KRYSTINA METAB OLIC PANEL globulin 2.4 g/dL_ (calc ) 1.9-3. 7 normal Not Available [address], [address], 06/10/2024 14:45:32 06/09/19 25 06/10/2024 COMPR EHENS KRYSTINA METAB OLIC PANEL albumin/glob ulin ratio 1.8 (calc ) 1.0-2. 5 normal Not Available [address], [address], 06/10/2024 14:45:32 06/09/19 25 06/10/2024 COMPR EHENS KRYSTINA METAB OLIC PANEL bilirubin, total 0.5 mg/dL 0.2-1. 2 normal Not Available [address], [address], 06/10/2024 14:45:32 06/09/19 25 06/10/2024 COMPR EHENS KRYSTINA METAB OLIC PANEL alkaline phosphatase 79 U/L 37-153 normal Not Available [address], [address], 06/10/2024 14:45:32 06/09/19 25 06/10/2024 COMPR EHENS KRYSTINA METAB OLIC PANEL AST 21 U/L 10-35 normal Not Available [address], [address], 06/10/2024 14:45:32 06/09/19 25 06/10/2024 COMPR EHENS KRYSTINA METAB OLIC PANEL ALT 17 U/L 6-29 normal Not Available [address], [address], 06/10/2024 14:45:32 06/09/19 06/10/2024 CBC (H/H, RBC, INDIC ES, WBC, PLT) white blood cell count 7.2 thous and/u L 3.8-10 .8 normal Not Available [address], [address], 06/10/2024 14:45:33 06/09/19 25 06/10/2024 CBC (H/H, RBC, INDIC ES, WBC, PLT) red blood cell count 4.20 xander on/uL 3.80-5 .10 normal Not Available [address], [address], 06/10/2024 14:45:33 06/09/19 25 06/10/2024 CBC (H/H, RBC, INDIC ES, WBC, PLT) hemoglobin 14.7 g/dL 11.7-1 5.5 normal Not Available [facility] [address], [address], 06/10/2024 14:45:33 06/09/19 25 06/10/2024 CBC (H/H, RBC, INDIC ES, WBC, PLT) hematocrit 42.9 % 35.0-4 5.0 normal Not Available [facility] [address], [address], 06/10/2024 14:45:33 06/09/19 25 06/10/2024 CBC (H/H, RBC, INDIC ES, WBC, PLT) MCV 102.1 fL 80.0-1 00.0 high Not Available [facility] [address], [address], 06/10/2024 14:45:33 06/09/19 25 06/10/2024 CBC (H/H, RBC, INDIC ES, WBC, PLT) MCH 35.0 pg 27.0-3 3.0 high Not Available [facility] [address], [address], 06/10/2024 14:45:33 06/09/19 25 06/10/2024 CBC (H/H, RBC, INDIC ES, WBC, PLT) MCHC 34.3 g/dL 32.0-3 6.0 normal For adult s, a sligh t decre ase in the calcu lated MCHC value (in the range of 30 to 32 g/dL) is most likel y not clini kevin signi lucas t; hima er, it shoul d be inter prete d with cauti on in corre latio n with other red cell jeff eters and the patie nt's clini erasto condi tion. Not Available [facility] [address], [address], 06/10/2024 14:45:33 06/09/19 25 06/10/2024 CBC (H/H, RBC, INDIC ES, WBC, PLT) RDW 12.3 % 11.0-1 5.0 normal Not Available [facility] [address], [address], 06/10/2024 14:45:33 06/09/19 25 06/10/2024 CBC (H/H, RBC, INDIC ES, WBC, PLT) platelet count 237 thous and/u L 140-40 0 normal Not Available [facility] [address], [address], 06/10/2024 14:45:33 06/09/19 25 06/10/2024 CBC (H/H, RBC, INDIC ES, WBC, PLT) MPV 10.5 fL 7.5-12 .5 normal Not Available [facility] [address], [address], 06/10/2024 14:45:33 07/02/19 24 07/01/2023 sudeep CURRAN, loren al, david whitaker No observ ation record ed. [email or web address] [place] [address], [place], [address], 07/09/2023 10:21:34 11/26/19 24 11/25/2023 XR, hip, unila teral , 2 or 3 view No observ ation record ed. [address], [place], [address], 11/29/2023 19:15:43 11/26/19 24 11/25/2023 XR, lumbo sacra l spine , 2 or 3 view No observ ation record ed. [address], [place], [address], 11/29/2023 19:15:43 12/25/19 24 12/25/2023 MRI, lumba r spine , w/o contr ast No observ ation record ed. [address], [place], [address], 12/25/2023 16:28:42 Result Notes None recorded. Problems Name Problem SNOMED Code Status Onset Date Resolution Date Notes Provider Name and Address Organization Details Recorded Time Rheumato id laura s [id number] Active 2017 NEDA Peña Attn: Accounting ,[address] [place], [address] , [facility] 8 12:23:48 Polyp of colon 43209255 Active 2020 repeat colonosc opy 10/2025 Quita Neville MD Attn: Accounting ,[address] [place], [address] , [place] [facility] 1 23:21:10 Rectal polypect lu Active 2023 hyperpla stic Quita Neville MD Attn: Accounting ,[address] [place], [address] , [place] [facility] 4 07:43:54 Allergic rhinitis caused by pollen 20011820 Completed 201101/19/2012 Location : None;Sev erity: Moderate ;Progres s: Stable;A dded By: Ade Sanchez;Add to Current Problems : NO Not Available [facility] 7 10:19:26 Tobacco dependen ce syndrome [id number] Completed 201101/19/2012 Location : None;Sev erity: Moderate ;Progres s: Stable;A dded By: Ade Sanchez;Add to Current Problems : NO Not Available [facility] 7 10:19:26 Headache [id number] Completed 201204/03/2013 Location : None;Sev erity: Moderate ;Progres s: Stable;A dded By: Hanny Flores;Add to Current Problems : NO Not Available [facility] 7 10:19:26 Acute upper respirat ory infectio n of multiple sites Completed 201411/28/2014 Location : None;Sev erity: Moderate ;Progres s: Stable;A dded By: Hanny Flores;Add to Current Problems : YES Not Available [facility] 7 10:19:26 Low back pain [id number] Completed 201107/24/2017 Location : None;Sev erity: Moderate ;Progres s: Stable;A dded By: Ade Sanchez;Add to Current Problems : NO NEDA Peña Attn: Accounting ,[address] [place], [address] , [facility] 8 12:23:19 Migraine variants 041222231 Active 2012 Location : None;Sev erity: Moderate ;Progres s: Stable;A dded By: Ade Sanchez;Add to Current Problems : NO Not Available [facility] 7 10:19:26 Allergy Completed 201307/24/2017 Location : None;Sev erity: Moderate ;Progres s: Stable;A dded By: Ade Sanchez;Add to Current Problems : NO NEDA Peña Attn: Accounting ,[address] [place], [address] , [facility] 8 12:23:41 Contact dermatit is [id number] Completed 201301/13/2014 Location : None;Sev erity: Moderate ;Progres s: Stable;A dded By: Ade Sanchez;Add to Current Problems : NO Not Available [facility] 7 10:19:26 Acute maxillar y sinusiti s [id number] Completed 201412/27/2014 Location : None;Sev erity: Moderate ;Progres s: Stable;A dded By: Ade Sanchez;Add to Current Problems : YES Not Available [facility] 7 10:19:26 Pruritic disorder [id number] Completed 201401/10/2015 Location : None;Sev erity: Moderate ;Progres s: Stable;A dded By: Ade Sanchez;Add to Current Problems : YES Not Available [facility] 7 10:19:26 Pure hypergly ceridemi a 273116797 Active 2012 Location : None;Sev erity: Moderate ;Progres s: Stable;A dded By: Ade Sanchez;Add to Current Problems : YES Not Available [facility] 7 10:19:26 Viral screenin g Completed 201401/10/2015 Location : None;Sev erity: Moderate ;Progres s: Stable;A dded By: Ade Sanchez;Add to Current Problems : YES Not Available [facility] 7 10:19:26 Cough [id number] Completed 201401/10/2015 Location : None;Sev erity: Moderate ;Progres s: Stable;A dded By: Ade Sanchez;Add to Current Problems : YES Not Available [facility] 7 10:19:26 Hypothyr oidism 97094957 Active 2012 Location : None;Sev erity: Moderate ;Progres s: Stable;A dded By: Ade Sanchez;Add to Current Problems : YES Not Available [facility] 7 10:19:26 Enthesop athy of hip region [id number] Completed 201501/13/2016 Location : None;Sev erity: Moderate ;Progres s: Stable;A dded By: Ade Sanchez;Add to Current Problems : YES Not Available [facility] 7 10:19:26 Transmaryan t insomnia 277078430 Completed 201501/13/2016 Location : None;Sev erity: Moderate ;Progres s: Stable;A dded By: Ade Sanchez;Add to Current Problems : YES Not Available [facility] 7 10:19:26 Pain in limb 45558248 Completed 201307/24/2017 Location : None;Sev erity: Moderate ;Progres s: Stable;A dded By: Martha Concepcion;Add to Current Problems : YES NEDA Peña Attn: Accounting ,[address] [place], [address] , [facility] 8 12:23:34 Eruption [id number] Completed 201306/26/2013 Location : None;Sev erity: Moderate ;Progres s: Stable;A dded By: Lidia De Souza; Add to Current Problems : NO NEDA Peña Attn: Accounting ,[address] [place], [address] , [facility] 8 12:23:17 Depressi ve disorder 82923514 Active 2013 Location : None;Sev erity: Moderate ;Progres s: Stable;A dded By: Lidia De Souza; Add to Current Problems : YES Not Available [facility] 7 10:19:26 Acute sinusiti s 87335278 Completed 201306/14/2013 Location : None;Sev erity: Moderate ;Progres s: Stable;A dded By: Rula Colbert i;Asiya dd to Current Problems : NO Not Available [facility] 7 10:19:26 Acute upper respirat ory infectio n of multiple sites Completed 201401/10/2015 Location : None;Sev erity: Moderate ;Progres s: Stable;A dded By: Rula Colbert i;Asiya dd to Current Problems : NO Not Available [facility] 7 10:19:26 Psychoge daniela headache [id number] Completed 201507/24/2017 Location : None;Sev erity: Moderate ;Progres s: Stable;A dded By: Rula Colbert i;Asiya dd to Current Problems : YES NEDA Peña Attn: Accounting ,[address], [place], [address] [place] [address] , [facility] 8 12:23:31 Nonvenom ous insect bite of multiple sites 712830295 Completed 201507/24/2017 Location : None;Sev erity: Moderate ;Progres s: Stable;A dded By: Rula Colbert i;Asiya dd to Current Problems : YES NEDA Peña Attn: Accounting ,[address] [facility], [place], [place], [address] [place] [address] 8 12:23:27 Malaise and fatigue 419355964 Completed 201206/11/2019 Location : None;Sev erity: Moderate ;Progres s: Stable;A dded By: Margie Seo;Add to Current Problems : YES TERENCE Ross Attn: Accounting ,[address] [facility], [place], [place], [address] [place] [address] , [facility] 0 09:58:25 Eruption [id number] Completed 201307/24/2017 Location : None;Sev erity: Moderate ;Progres s: Stable;A dded By: Margie Seo;Add to Current Problems : YES NEDA Peña Attn: Accounting ,[address], [place], [address] [place] [address] , [facility] 8 12:23:17 Spondylo sis 9308247 Active 2011 Location : None;Sev erity: Moderate ;Progres s: Stable;A dded By: Lidia De Souza; Add to Current Problems : NO Not Available [facility] 7 10:19:27 Problem Notes None recorded. Procedures Surgical History Date Name Laterality Status Provider Name and Address Organization Details Recorded Time 020 Date of Last Mammogram completed Nazanin Rocha [place] - [facility] 07/19/2021 12:18:23 017 primary fusion of cervical spine completed NEDA Osullivan Attn: Accounting,[address] , [place], [address], [place] [facility] 12/05/2023 16:49:30 993 Tubal Ligation completed Rula Ariasalicia [place] [facility] 12/10/2016 10:35:12 Appendectomy completed Barbara Ch [place] [facility] 05/24/2016 10:24:31 Breast Surgery completed [place] Ch [place] [facility] 05/24/2016 10:24:51 Cholecyst[place] Ch [place] [facility] 05/24/2016 10:24:59 Imaging Results Imaging Date Name Status LastModified by Organiz ation Details LastModified Time 07/01/2023 MAMMO, screening, digital, bilateral completed [address], [address], 07/09/2023 10:21:34 11/25/2023 XR, hip, unilateral, 2 or 3 view completed [address], [address], 11/29/2023 19:15:43 11/25/2023 XR, lumbosacral spine, 2 or 3 view completed [address], [address], 11/29/2023 19:15:43 12/25/2023 MRI, lumbar spine, w/o contrast completed [address] [place] [address], [address], 12/25/2023 16:28:42 Procedure Notes None recorded. Medical Equipment None Reported. Allergies Allergen ID Allergen Name Allergen Category Reaction Reaction Severity Criticality Documentation Date Start Date Code Code System Note Provider Name and Address Organization Details Recorded Time 350601 doxycycli ne Not available rash moderate high 04/24/20222021 3640 RxNorm Not Available Not Available Not Available 49675 Product containin g penicilli n (product) medicatio n rash moderate Not available 05/08/20162011 00816 8001 SNOMED React ion: rash; Sever ity: Moder ate; Comme nt: Aller gy Type: Aller gy; Not Available Not Available Not Available 61525 Cipro medicatio n rash moderate Not available 05/08/20162011 71938 3 RxNorm React ion: rash; Sever ity: Moder ate; Comme nt: Aller gy Type: Aller gy; Not Available Not Available Not Available 12153 erythromy paulette medicatio n Not available Not available Not available 05/08/20162011 4053 RxNorm React ion: nause a, vomit ing;S everi ty: Moder ate; Comme nt: Aller gy Type: Adver se React ion; Not Available Not Available Not Available 63620 Demerol medicatio n Not available Not available Not available 05/08/20162011 58005 1 RxNorm Sever ity: Moder ate; Comme nt: Aller gy Type: Aller gy; Not Available Not Available Not Available [address] tramadol Not available rash moderate Not available 05/08/20162012 15977 RxNorm React ion: rash; Sever ity: Moder ate; Comme nt: Aller gy Type: Aller gy; Not Available Not Available Not Available 97510 Bactrim medicatio n itching moderate Not available 05/08/20162013 56219 9 RxNorm React ion: itchi ng;Se verit y: Moder ate; Comme nt: Aller gy Type: Aller gy; Not Available Not Available Not Available 98664 Substance with sulfonami de structure and antibacte rial mechanism of action (substanc e) medicatio n Not available Not available Not available 05/08/20162013 59099 8003 SNOMED Sever ity: Moder ate; Comme nt: Aller gy Type: Aller gy; Not Available Not Available Not Available Medications Name Sig Start Date Stop Date Status Note LastModified by Organization Details LastModified Time celecoxib 200 mg capsule 06/13 completed Not Available Not Available Not Available atorvastat in 40 mg tablet TAKE 1 TABLET BY MOUTH ONCE DAILY active Not Available Not Available No t Available methocarba mol 500 mg tablet prn 06/13 completed Not Available Not Available Not Available mat ne-DM 6.25 mg-15 mg/5 mL oral syrup Take 5 mL every 6 hours by oral route as needed. 05/21 completed Not Available Not Available Not Available azelastine 0.05 % eye drops INSTILL 1 DROP INTO AFFECTED EYE(S) TWICE DAILY active rarely Not Available Not Available No t Available Colace 100 mg capsule Take 1 capsule every day by oral route as needed for 90 days. 06/09 completed Not Available Not Available Not Available prednisone 10 mg tablet take 6 tabs daily x 3 days, then 4 tabs daily x 3 days, then 2 tabs daily x 3 days then 1 tab daily x 3 days with food 03/13 completed RxNorm: 807397; Allow Substit ution: True Not Available Not Available Not Available doxycyclin e hyclate 100 mg capsule Take 1 capsule twice a day by oral route for 7 days. 05/10 completed Not Available Not Available Not Available paroxetine 10 mg tablet Take 1 tablet by mouth once daily 01/02 completed Not Available Not Available Not Available atorvastat in 20 mg tablet TAKE 1 TABLET BY MOUTH ONCE DAILY 06/09 completed Not Available Not Available Not Available trazodone 50 mg tablet Take 1 or 2 at bedtime as needed for insomnia 05/24 completed Not Available Not Available Not Available triamcinol one acetonide 0.5 % topical cream Apply thin film to affected area bid 12/22 completed RxNorm: 674400; Allow Substit ution: True Not Available Not Available Not Available azithromyc in 250 mg tablet Take 2 tablet(s ) by mouth on day 1 then 1 tablet every day for the next 4 days. 11/20 completed Not Available Not Available Not Available ibuprofen 800 mg tablet ONE PO TID PRN 12/10 completed Not Available Not Available Not Available tizanidine 4 mg tablet 12/25 completed Not Available Not Available Not Available fluconazol e 150 mg tablet Take 1 tablet every 72 hours by oral route for 9 days. 07/24 completed Not Available Not Available Not Available hydrocodon e 5 mg-acetami nophen 325 mg tablet 06/13 completed Not Available Not Available Not Available prednisone 20 mg tablet TAKE 2 TABLETS BY MOUTH ONCE DAILY FOR 5 DAYS 07/08 completed Not Available Not Available Not Available prednisone 5 mg tablet 07/24 completed Not Available Not Available Not Available Wellbutrin SR 150 mg tablet, 12 hr sustained- release Take one tablet PO dailty 03/28 completed RxNorm: 501705; Allow Substit ution: True Not Available Not Available Not Available promethazi ne 6.25 mg-codeine 10 mg/5 mL syrup Take 5 mL every 6 hours by oral route as needed for 7 days. 06/13 completed Not Available Not Available Not Available Flonase 50 mcg/actuat ion nasal spray,susp ension 2 spray(s) in each nostril daily 12/10 completed RxNorm: 829460; Allow Substit ution: True Not Available Not Available Not Available Zyrtec 10 mg tablet TAKE 1 TABLET BY ORAL ROUTE ONCE DAILY 07/19 completed Not Available Not Available Not Available hydroxyzin e HCl 50 mg tablet take 1 po tid prn 10/23 completed RxNorm: 127821; Allow Substit ution: True Not Available Not Available Not Available melatonin 3 mg tablet Take 1 tablet one hour before bedtime 06/13 completed Not Available Not Available Not Available acetaminop hen 300 mg-codeine 30 mg tablet Take up to tid prn 12/25 completed Not Available Not Available Not Available tramadol 50 mg tablet 1 2 q 6hrs 05/24 completed Not Available Not Available Not Available Kenalog 40 mg/mL suspension for injection INJECT 1 ML KENALOG W/ 1 ML LIDOCAIN E ONCE 06/09 completed Not Available Not Available Not Available ofloxacin 0.3 % ear drops INSTILL 10 DROPS (1.5 MG) INTO AFFECTED EAR(S) BY OTIC ROUTE 2 TIMES PER DAY 06/13 completed Not Available Not Available Not Available estradiol 1 mg tablet Take 1 tablet every day by oral route. 06/13 completed Not Available Not Available Not Available triamcinol one acetonide 0.025 % topical cream APPLY A THIN LAYER TO THE AFFECTED AREA(S) BY TOPICAL ROUTE 2 TIMES PER DAY 06/13 completed Not Available Not Available Not Available methotrexa te sodium 2.5 mg tablet TAKE 7 TABLETS BY MOUTH ONCE A WEEK active Not Available Not Available No t Available meclizine 25 mg tablet Take 1 tablet 3 times a day by oral route for 7 days. 04/16 completed Not Available Not Available Not Available benzonatat e 100 mg capsule Take 1 capsule 3 times a day by oral route for 10 days. 11/20 completed Not Available Not Available Not Available levothyrox ine 50 mcg tablet TAKE 1 TABLET BY MOUTH ONCE DAILY IN THE MORNING ON AN EMPTY STOMACH 2023 active Not Available Not Available Not Avai lable paroxetine 30 mg tablet TAKE 1 TABLET BY MOUTH ONCE DAILY WITH THE 10MG TABLET 01/02 completed Not Available Not Available Not Available paroxetine 20 mg tablet take 1 tab po daily 06/11 completed Not Available Not Available Not Available oseltamivi r 75 mg capsule Take 1 capsule twice a day by oral route for 5 days. 07/24 completed Not Available Not Available Not Available polymyxin B sulfate 10,000 unit-trime thoprim 1 mg/mL eye drops INSTILL 1 DROP INTO AFFECTED EYE(S) BY OPHTHALM IC ROUTE EVERY 6 HOURS for 7 days 06/02 completed Not Available Not Available Not Available progestero ne micronized 200 mg capsule Take 1 capsule every day by oral route. 06/13 completed Not Available Not Available Not Available gabapentin 300 mg capsule TAKE 1 CAPSULE BY MOUTH TWICE DAILY 06/09 completed Not Available Not Available Not Available folic acid 1 mg tablet TAKE 3 TABLETS BY MOUTH ONCE DAILY active Not Available Not Available No t Available morphine ER 15 mg tablet,ext ended release 12/10 completed Not Available Not Available Not Available codeine 10 mg-guaifen esin 100 mg/5 mL oral liquid Take 10 mL every 4-6 hours by oral route as needed for 3 days, for cough. 11/20 completed Not Available Not Available Not Available mupirocin 2 % topical ointment 06/13 completed Not Available Not Available Not Available gabapentin 100 mg capsule TAKE 1 CAPSULE IN THE MORNING AND 3 BEFORE BED active Not Available Not Available No t Available clobetasol 0.05 % topical ointment 11/20 completed Not Available Not Available Not Available diazepam 10 mg tablet 06/13 completed Not Available Not Available Not Available hydroxychl oroquine 200 mg tablet TAKE 1 TABLET BY MOUTH ONCE DAILY active Not Available Not Available No t Available methylpred nisolone 4 mg tablets in a dose pack Take as directed with food 11/20 completed Not Available Not Available Not Available albuterol sulfate HFA 90 mcg/actuat ion aerosol inhaler Inhale 2 puffs every 4 hours by inhalati on route. 06/09 completed Not Available Not Available Not Available Tessalon 200 mg capsule Take 1 pill TID w6oz of fluid prn cough 04/10 completed RxNorm: 022128; Allow Substit ution: True Not Available Not Available Not Available paroxetine 40 mg tablet TAKE 1 TABLET BY MOUTH ONCE DAILY active Not Available Not Available No t Available hydroxyzin e HCl 10 mg tablet Take 1 tablet every 6-8 hours by oral route as needed for 5 days. 07/24 completed Not Available Not Available Not Available cefdinir 300 mg capsule TAKE 1 CAPSULE BY MOUTH EVERY 12 HOURS FOR 7 DAYS 06/24 completed Not Available Not Available Not Available doxycyclin e hyclate 100 mg tablet Take 1 tablet twice a day by oral route for 10 days. 11/12 completed Not Available Not Available Not Available nabumetone 500 mg tablet TAKE 1 TABLET BY MOUTH TWICE DAILY active Not Available Not Available No t Available oxycodone 5 mg tablet Take 1 tab po q 4 hours prn 06/13 completed Not Available Not Available Not Available Bactrim DS 800 mg-160 mg tablet 1 po bid x 7 days 05/26 completed RxNorm: 002092; Allow Substit ution: True Not Available Not Available Not Available Flexeril 5 mg tablet Take 1 tablet(s ) by mouth tid 05/21 completed RxNorm: 728965; Allow Substit ution: True Not Available Not Available Not Available bupropion HCl XL 300 mg 24 hr tablet, extended release TAKE ONE TABLET BY MOUTH ONCE DAILY 06/13 completed Not Available Not Available Not Available bupropion HCl XL 150 mg 24 hr tablet, extended release TAKE 1 TABLET BY MOUTH ONCE DAILY active Not Available Not Available No t Available nitrofuran toin monohydrat e/macrocry stals 100 mg capsule TAKE 1 CAPSULE BY MOUTH EVERY 12 HOURS FOR 7 DAYS 07/08 completed Not Available Not Available Not Available melatonin 5 mg at night 03/07 completed Not Available Not Available Not Available hydrocodon e 5 mg-acetami nophen 300 mg tablet use as directed prn 12/25 completed Not Available Not Available Not Available Enbrel SureClick 50 mg/mL (1 mL) subcutaneo us pen injector INJECT 50MG ONCE WEEKLY active Not Available Not Available No t Available biotin 2,500 mcg capsule Take 2 capsules every day by oral route. active Not Available Not Available No t Available levothyrox ine 50 mcg capsule Take 1 capsule( s) by mouth daily before breakfas t. 05/19 completed Allow Substit ution: True Not Available Not Available Not Available Jinteli 1 mg-5 mcg tablet Take 1 tablet(s ) by mouth daily as directed . 05/24 completed Not Available Not Available Not Available Belinda Allergy 180 mg tablet Take one tablet po daily prn 03/28 completed Allow Substit ution: True Not Available Not Available Not Available melatonin 10 mg capsule Take 1 capsule every day by oral route at bedtime. 05/21 completed Not Available Not Available Not Available Procto-Med HC 2.5 % topical cream perineal applicator APPLY A THIN LAYER OF CREAM TO AFFECTED AREA 2 TO 4 TIMES DAILY 11/20 completed Not Available Not Available Not Available Fluarix Quad 6580-4645 (PF) 60 mcg (15 mcg x 4)/0.5 mL IM syringe 12/10 completed Not Available Not Available Not Available Flucelvax Quad 1099-3858 (PF) 60 mcg (15 mcg x 4)/0.5 mL IM syringe 06/13 completed Not Available Not Available Not Available Humira(CF) 40 mg/0.4 mL subcutaneo us syringe kit every two weeks 07/19 completed Not Available Not Available Not Available Flucelvax Quad (PF) 60 mcg (15 mcg x 4)/0.5 mL IM syringe 06/11 completed Not Available Not Available Not Available Afluria Qd 2019- (36 mos up)(PF)60 mcg (15 mcg x4)/0.5 mL IM syringe 03/07 completed Not Available Not Available Not Available Vitals Date Recorded Body height Body temperature Body mass index (BMI) Body weight Oxygen saturation Oxygen saturation in Arterial blood by Pulse oximetry Heart rate Systolic blood pressure Diastolic blood pressure Provider Name and Address Organization Details Last Updated DateTime 4 167.64 cm 97.5 [degF] 28.9 kg/m2 39247.0 3 g 99 % 99 % 81 /min 112 mm[Hg] 77 mm[Hg] Blanca Owen MA [facility] 4 14:25:08 Date Recorded Body height Body mass index (BMI) Body weight Body temperature Heart rate Oxygen saturation Oxygen saturation in Arterial blood by Pulse oximetry Systolic blood pressure Diastolic blood pressure Provider Name and Address Organization Details Last Updated DateTime 4 167.64 cm 28.7 kg/m2 54807.4 4 g 97.5 [degF] 93 /min 99 % 99 % 122 mm[Hg] 81 mm[Hg] Bouchra Combs MA [facility] 4 10:19:24 Date Recorded Body height Body mass index (BMI) Body weight Oxygen saturation Oxygen saturation in Arterial blood by Pulse oximetry Systolic blood pressure Diastolic blood pressure Provider Name and Address Organization Details Last Updated DateTime 4 167.64 cm 27.9 kg/m2 10407.4 8 g 99 % 99 % 117 mm[Hg] 81 mm[Hg] MAYRA Rowan [facility] 4 12:24:06 Date Recorded Heart rate Provider Name an d Address Organization Details Last Updated DateTime 07/25/2023 87 /min NEDA Osullivan Attn: Accounting[address] [place], [address], [facility] 07/25/2023 12:33:35 Date Recorded Body height Body mass index (BMI) Body weight Body temperature Oxygen saturation Oxygen saturation in Arterial blood by Pulse oximetry Heart rate Systolic blood pressure Diastolic blood pressure Provider Name and Address Organization Details Last Updated DateTime 4 167.64 cm 29.1 kg/m2 20697.6 3 g 97.5 [degF] 99 % 99 % 78 /min 106 mm[Hg] 74 mm[Hg] Bouchra Combs [facility] 4 10:52:15 Date Recorded Body height Body mass index (BMI) Body weight Oxygen saturation Oxygen saturation in Arterial blood by Pulse oximetry Heart rate Body temperature Systolic blood pressure Diastolic blood pressure Provider Name and Address Organization Details Last Updated DateTime 5 167.64 cm 29.3 kg/m2 01129.0 2 g 97 % 97 % 69 /min 96.6 [degF] 117 mm[Hg] 84 mm[Hg] Kevin Oneill MA [facility] 5 10:32:03 Social History Question Answer Notes LastModified by Organizat ion Details LastModified Time Tobacco Smoking Status Former Smoker MAYRA Rahman, [facility] 07/19/2021 12:14:22 Do You Have An Advance Directive? No Information not available 07/19/2021 What Is Your Level Of Alcohol Consumption? Occasional Information not available 07/19/2021 Are You Blind Or Do You Have Difficulty Seeing? No Information not available 07/19/2021 What Is Your Level Of Caffeine Consumption? Moderate Information not available 07/19/2021 Are You Currently Employed? No Information not available 07/19/2021 Are You Deaf Or Do You Have Serious Difficulty Hearing? No Information not available 07/19/2021 What Type Of Diet Are You Following? REGULAR Information not available 07/19/2021 Do You Or Have You Ever Used E-cigarettes Or Vape? Never Used Electronic Cigarettes Information not available 03/07/2020 What Was The Date Of Your Most Recent Tobacco Screening? 11/21/2023 [email or web address] Information not available 11/21/2023 What Is Your Relationship Status? Information not available 07/19/2021 Do You Use Your Seat Belt Or Car Seat Routinely? Yes Information not available 07/19/2021 Do You Have Smoke And Carbon Monoxide Detectors In Your Home? Yes Information not available 07/19/2021 Are You Passively Exposed To Smoke? No Information not available 07/19/2021 Do You Or Have You Ever Used Smokeless Tobacco? Never Used Smokeless Tobacco Information not available 03/07/2020 Do You Feel Stressed (tense, Restless, Nervous, Or Anxious, Or Unable To Sleep At Night)? [id number] Information not available 07/19/2021 Do You Use Any Illicit Or Recreational Drugs? Yes Ju Information not available 07/19/2021 Has Tobacco Cessation Counseling Been Provided? No Information not available 06/24/2023 Do You Or Have You Ever Used Any Other Forms Of Tobacco Or Nicotine? No Information not available 06/24/2023 Sex: Female Functional Status Question Answer Note LastModified by Organizat ion Details LastModified Time Are you able to care for yourself? Yes Information not available 07/19/2021 What is your exercise level? Occasional Information not available 07/19/2021 Mental Status None recorded. Family History Relationship Description Onset Age of this Age Resolved Age Notes LastModified by Organization Details LastModified Time Mother Dementia [email or web address] Not availabl e 05/24/2016 10:25:18 Mother Diabetes mellitus charrisma Not available 2016 10:25:26 Mother Disorder of thyroid gland charrisma Not available 2016 10:25:31 Mother Hypertensive disorder charrisma Not available 2016 10:25:43 Mother Hypercholest erolemia charrisma Not available 2016 10:25:52 Mother Osteoporosis charrisma Not avai lable 05/24/2016 10:26:00 Father Diabetes mellitus charrisma Not available 2016 10:25:26 Father Heart disease charrisma Not available 2016 10:25:37 Father Hypercholest erolemia charrisma Not available 2016 10:25:52 Father Coronary arterioscler osis [email or web address] Not available 12/2016 10:35:24 Father Type 2 diabetes mellitus [email or web address] Not available 12/2016 10:35:35 Unspecified Relation Malignant neoplastic disease grandm other [email or web address] Not available 12/10/2016 10:35:50 Medical History Condition Response Coronary Artery Disease N Other N High Blood Pressure N Atrial Fibrillation N Thyroid Problems Y Kidney or Bladder Problems N GI Problems Y Depression Y COPD N Blood Clots N Have you had a mammogram in the last yea r? Y Skin Problems Y Eating Disorder N Anemia N Heart Attack (DE) N Anxiety Disorder N Diabetes N Muscle, Joint, or Bone Problems N Arthritis Y Seizures/Epilepsy N Have you had a colonoscopy in the last 1 0 years? Y Acid Reflux (GERD) N Cancer N Stroke N Asthma N Allergies Y Have you had a PSA blood test in the las t year? N ADHD N Substance Abuse N High Cholesterol Y Hepatitis N Liver Disease N Schizophrenia N Headaches Y Heart Failure N Osteoporosis N Gynecological History Statement/Question Response Menses Monthly N If Post Menopausal, Age at Menopause 43 Date of Last Mammogram 03/09/2020 Obstetrics History GPAL:G 0 P 0 0 0 0 Immunizations Vaccine Type Date Status Note Provider Nam e and Address Organization Details Recorded Time Tdap 2 completed TERENCE Ross Attn: [address]ing[address], [place], [address] [place] [address], [place] [facility] 06/11/2019 10:05:48 COVID-19, mRNA, LNP-S, PF, 30 mcg/0.3 mL dose 1 completed NEDA Osullivan Attn: Accounting[address], [place], [address] [place] [address], [place] [facility] 11/12/2022 10:12:14 COVID-19, mRNA, LNP-S, PF, 30 mcg/0.3 mL dose 1 completed NEDA Osullivan Attn: Accounting[address], [address] [place] [address], [place] [facility] 11/12/2022 10:12:14 COVID-19, mRNA, LNP-S, PF, 30 mcg/0.3 mL dose 1 completed NEDA Osullivan Attn: Accounting[address] [place], [address] [place] [address], [place] [facility] 11/12/2022 10:12:14 pneumococcal polysaccharide PPV23 2 completed NEDA Osullivan Attn: Accounting[address], [address] [place] [address], [place] [facility] 11/12/2022 10:12:14 Pneumococcal conjugate PCV 13 2 completed NEDA Osullivan Attn: Accounting,[address] [facility], [place], [place], [address] [place] [address], [facility] 07/19/2021 12:27:55 zoster recombinant 2 completed NEDA Osullivan Attn: Accounting,[address] [facility], [place], [place], [address] [place] [address], [facility] - [facility] 11/12/2022 10:12:14 Influenza, MDCK, quadrivalent, PF 9 completed NEDA Osullivan Attn: Accounting,[address] [facility], [place], [place], [address] [place] [address], [facility] - [facility] 11/12/2022 10:12:14 Influenza, MDCK, quadrivalent, PF 7 completed NEDA Osullivan Attn: Accounting,[address] [facility], [place], [place], [address] [place] [address], [facility] - [facility] 11/12/2022 10:12:14 zoster recombinant 2 completed NEDA Osullivan Attn: Accounting,[address] [facility], [place], [place], [address] [place] [address], [facility] - [facility] 11/12/2022 10:12:14 COVID-19, mRNA, LNP-S, bivalent, PF, 30 mcg/0.3 mL dose 2 completed NEDA Osullivan Attn: Accounting,[address] [facility], [place], [place], [address] [place] [address], [facility] - [facility] 11/12/2022 10:12:14 Tdap 1 completed NEDA Osullivan Attn: Accounting,[address] [facility], [place], [place], [address] [place] [address], [facility] - [facility] 11/12/2022 10:12:14 Pneumococcal conjugate PCV 13 1 completed NEDA Osullivan Attn: Accounting,[address] [facility], [place], [place], [address] [place] [address], [facility] - [facility] 11/12/2022 10:12:14 Influenza, split virus, trivalent, PF 5 completed NEDA Osullivan Attn: Accounting,[address] [facility], [place], [place], [address] [place] [address], [facility] 11/12/2022 10:12:14 Influenza, split virus, quadrivalent, PF 7 completed NEDA Osullivan Attn: Accounting,[address] [facility], [place], [place], [address] [place] [address], [facility] 11/12/2022 10:12:15 Influenza, split virus, quadrivalent, PF 0 completed NEDA Osullivan Attn: Accounting,[address] [facility], [place], [place], [address] [place] [address], [facility] 11/12/2022 10:12:15 Influenza, split virus, quadrivalent, PF 2 completed NEDA Osullivan Attn: Accounting,[address] [facility], [place], [place], [address] [place] [address], [facility] 11/12/2022 10:12:15 Influenza, split virus, quadrivalent, PF 1 completed NEDA Osullivan Attn: Accounting,[address] [facility], [place], [place], [address] [place] [address], [facility] 11/12/2022 10:12:15 Influenza, split virus, quadrivalent, preservative 1 completed NEDA Osullivan Attn: Accounting,[address] [facility], [place], [place], [address] [place] [address], [facility] 11/12/2022 11:51:18 COVID-19, mRNA, LNP-S, PF, 50 mcg/0.5 mL 3 completed NEDA Osullivan Attn: [address] [place], [address] [place] [address], [facility] 05/15/2023 11:01:37 Influenza, split virus, quadrivalent, PF 3 completed NEDA Osullivan Attn: [address]ing[address] [place], [address] [place] [address], [facility] 05/15/2023 11:01:37 COVID-19, mRNA, LNP-S, PF, 50 mcg/0.5 mL 4 completed NEDA Osullivan Attn: [address] [place], [address] [place] [address], [facility] 06/09/2024 10:47:05 Influenza, split virus, trivalent, PF 4 completed NEDA Osullivan Attn: Accounting[address] [place], [address], [facility] 06/09/2024 10:47:06 Tdap 2 completed MAYRA Rahman, [place] - [facility] 07/19/2021 13:01:01 Td (adult), 2 Lf tetanus toxoid, preservative free, adsorbed 9 completed NEDA Oslulivan Attn: [address]ing[address] [place], [address], [facility] 11/12/2022 10:12:14 Influenza, split virus, trivalent, preservative 1 completed Not Available [facility] 05/08/2016 05:41:02 Influenza, split virus, trivalent, preservative 3 completed Not Available [facility] 05/08/2016 05:41:03 Influenza, split virus, trivalent, preservative 4 completed Not Available [facility] 05/08/2016 05:41:03 Past Encounters Encounter ID Performer Location Encounter Start Date Encounter Closed Date Diagnosis/Indication Diagnosis SNOMED-CT Code Diagnosis ICD10 Code Diagnosis Note [id number] NEDA Peña [facility] [address] [place] [address] [place] [address] 05/24/2016 10:12:15 05/27/2016 14:01:55 Acute sinusitis 64508878 J01.90 Acute laryngitis 8822984 J04.0 Raynaud's phenomenon 266 217934 I73.00 Cheilitis 5398262 K13.0 Cervical d isc disorder 151416680 M50.90 Hyperlipid emia screening 836864338 Z13.220 Hypothyroidism 64559941 E03.9 [id number] Nakul Sanchez MD [facility] [address] [place] [address] [place] [address] 12/10/2016 15:12:25 12/11/2016 11:34:50 Acute otitis externa 58265974 H60.408 [id number] Nakul Sanchez MD [facility] [address] [place] [address] 12/25/2016 11:34:55 12/25/2016 14:52:03 Allergic reaction to drug 477381784 T50.905A [id number] Deana Ibrahim LPN [facility] [address] [place] [address] [place] [address] 05/30/2017 09:31:06 05/30/2017 10:28:53 Hypothyroidism 49777363 E03.9 Pure hyperglyceridemia 970627900 E78.1 [id number] NEDA Peña [facility] [address] [place] [address] 06/13/2017 09:53:36 06/13/2017 15:58:48 Hypothyroidism 47209669 E03.9 Fever 508079513 R50.9 Exposure t o Influenzavirus 429908941 Z20.828 Acute sinusitis 87146918 J01.90 Immunosupp ressive therapy 92258078 D84.9 [id number] NEDA Peña [facility] [address] [place] [address] 07/24/2017 11:43:14 07/24/2017 16:56:07 Acute sinusitis 54008434 J01.90 [id number] TERENCE Ross [facility] [address] [place] [address] 05/21/2018 14:54:43 05/22/2018 09:40:07 Acute sinusitis 06590031 J01.90 flonase one spray each nostril daily Acute conjunctivitis 537 78617 H10.32 [id number] TERENCE Ross [facility] [address] [place] [address] [place] [address] 06/02/2018 15:04:53 06/03/2018 10:25:16 Pain in throat 279564006 R07.0 Pharyngitis 371215144 J0 2.9 continue flonase and zyrtecWill notify of culture results if ABT needed will call them in [id number] TERENCE Ross [facility] [address] [place] [address] [place] [address] 06/11/2019 09:33:10 06/11/2019 11:34:35 Hypothyroidism 39077309 E03.9 Depressive disorder 3548 9007 F32.9 PHQ9= 6 however she is feeling a little more down since she quit working.Th inks it needs to be increased Rheumatoid arthritis 698 75739 M06.9 Montserrat Rene not had eye exam in a while, recommend she get eye exam for hyrodychlo roquine Allergic conjunctivitis 037319822 H10.13 [id number] TERENCE Ross [facility] [address] [place] [address] 03/07/2020 10:02:41 03/07/2020 17:35:03 Acute bronchitis 94965017 J20.9 symptoms for 11 days COVID neg per [facility]. If not better in 3 days RTC [id number] TERENCE Ross [facility] [address] [place] [address] 06/13/2020 11:19:48 06/14/2020 09:09:08 Hypothyroidism 95589831 E03.9 Depressive disorder 3548 9007 F32.9 PHQ9= 0 Be physically active. Getting 30 minutes of exercise each day is good for your body and your mind. Begin slowly if it is hard for you to get started, If you already exercise, keep it up. Plan something pleasant for yourself every day. Include activities that you have enjoyed in the past. Get enough sleep. Eat a balanced diet. If you do not feel hungry, eat small snacks rather than large meals. Do not drink alcohol, use illegal drugs, or take medicines that your doctor has not prescribed for you. They may interfere with your treatment. Spend time with family and friends. It may help to speak openly about your depression with people you trust. Take your medicines exactly as prescribed . Do not make major life decisions while you are depressed. Depression may change the way you think. You will be able to make better decisions after you feel better. Think positively . Challenge negative thoughts with statements such as I am hopeful ; Things will get better ; and I can ask for the help I need. Write down these statements and read them often, even if you don't believe them yet. Be patient with yourself. It took time for your depression to develop, and it will take time for your symptoms to improve. Do not take on too much or be too hard on yourself. Learn all you can about depression from written and online materials. Check out behavioral health classes to learn more about dealing with depression . Keep the numbers for these national suicide hotlines: 8-284-796- TALK (3-385-097 -0191) and 7-245-SUIC ANNI (4-737-070 -3672). If you or someone you know talks about suicide or feeling hopeless, get help right away. Rheumatoid arthritis 698 56587 M06.9 Montserrat Saavedra September 2019 [facility], will get last exam. from them Allergic conjunctivitis 450970139 H10.13 Change in skin lesion 39 6757383 L98.9 actinic Keratosis Osteopenia 979547401 M85 .80 Repeat DExa in Jun 2022 [facility] examination 529159344 Z00.00 [id number] NEDA Osullivan [facility] [address] [place] [address] [facility] [place] [address] 07/19/2021 12:02:21 07/19/2021 15:50:00 Hypothyroidism 55122653 E03.9 Depressive disorder 3548 9007 F32.9 increasing paxil for hot flashes take one 30mg and one 10 mg tablet together Be physically active. Getting 30 minutes of exercise each day is good for your body and your mind. Begin slowly if it is hard for you to get started, If you already exercise, keep it up. Plan something pleasant for yourself every day. Include activities that you have enjoyed in the past. Get enough sleep. Eat a balanced diet. If you do not feel hungry, eat small snacks rather than large meals. Do not drink alcohol, use illegal drugs, or take medicines that your doctor has not prescribed for you. They may interfere with your treatment. Spend time with family and friends. It may help to speak openly about your depression with people you trust. Take your medicines exactly as prescribed . Do not make major life decisions while you are depressed. Depression may change the way you think. You will be able to make better decisions after you feel better. Think positively . Challenge negative thoughts with statements such as I am hopeful ; Things will get better ; and I can ask for the help I need. Write down these statements and read them often, even if you don't believe them yet. Be patient with yourself. It took time for your depression to develop, and it will take time for your symptoms to improve. Do not take on too much or be too hard on yourself. Learn all you can about depression from written and online materials. Check out behavioral health classes to learn more about dealing with depression . Keep the numbers for these national suicide hotlines: 5-658-273- TALK (4-605-573 -1394) and 3-741-SUIC ANNI (4-790-262 -9450). If you or someone you know talks about suicide or feeling hopeless, get help right away. Osteopenia 846568957 M85 .80 Repeat DExa in Jun 2022 Adult [facility] th examination 888655058 Z00.00 Administra tion of diphtheria, pertussis, and tetanus vaccine 062315999 Z23 Hyperlipid emia screening 930603923 Z13.692 [id number] NEDA Osullivan [facility] [address] [place] [address] 10/02/2021 15:58:39 10/02/2021 19:14:31 Depressive disorder 63000579 F32.9 Be physically active. Getting 30 minutes of exercise each day is good for your body and your mind. Begin slowly if it is hard for you to get started, If you already exercise, keep it up. Plan something pleasant for yourself every day. Include activities that you have enjoyed in the past. Get enough sleep. Eat a balanced diet. If you do not feel hungry, eat small snacks rather than large meals. Do not drink alcohol, use illegal drugs, or take medicines that your doctor has not prescribed for you. They may interfere with your treatment. Spend time with family and friends. It may help to speak openly about your depression with people you trust. Take your medicines exactly as prescribed . Do not make major life decisions while you are depressed. Depression may change the way you think. You will be able to make better decisions after you feel better. Think positively . Challenge negative thoughts with statements such as I am hopeful ; Things will get better ; and I can ask for the help I need. Write down these statements and read them often, even if you don't believe them yet. Be patient with yourself. It took time for your depression to develop, and it will take time for your symptoms to improve. Do not take on too much or be too hard on yourself. Learn all you can about depression from written and online materials. Check out behavioral health classes to learn more about dealing with depression . Keep the numbers for these national suicide hotlines: 3-923-959- TALK (2-138-017 -9814) and 0-925-SUIC ANNI (2-180-000 -1042). If you or someone you know talks about suicide or feeling hopeless, get help right away. Dizziness 604183912 R42 Will give meclizine for vertigo symptoms. Call if symptoms do not improve. Overweight 877518048 E66 .3 Intermitte nt palpitations 153954540 R00.2 Will refer to cardiology to further work up. If you develop acute chest pain, unrelentin g chest pain, weakness, etc go straight to ER or call 911 in the meant time. Allergic conjunctivitis 023438346 H10.13 [id number] Quita Neville MD [facility] [address] [place] [address] [facility] [place] [address] 04/16/2022 13:47:44 04/17/2022 11:57:19 Acute bronchitis 85892118 J20.9 pt ed-- OK for DELSYM-- we discussed post poning immunosupp ressive med until feeling better Patient immunocompromised 525786023 D84.9 Ex-smoker 2032491 Z87.89 1 consider LDCT scan with follow up or annual check up [id number] NEDA Osullivan [facility] [address] [place] [address] [place] [address] 11/12/2022 11:00:25 11/12/2022 16:39:55 Adult health examination 974552967 Z00.00 Depressive disorder 3548 9007 F32.9 Controlled on paroxetine Be physically active. Getting 30 minutes of exercise each day is good for your body and your mind. Begin slowly if it is hard for you to get started, If you already exercise, keep it up. Plan something pleasant for yourself every day. Include activities that you have enjoyed in the past. Get enough sleep. Eat a balanced diet. If you do not feel hungry, eat small snacks rather than large meals. Do not drink alcohol, use illegal drugs, or take medicines that your doctor has not prescribed for you. They may interfere with your treatment. Spend time with family and friends. It may help to speak openly about your depression with people you trust. Take your medicines exactly as prescribed . Do not make major life decisions while you are depressed. Depression may change the way you think. You will be able to make better decisions after you feel better. Think positively . Challenge negative thoughts with statements such as I am hopeful ; Things will get better ; and I can ask for the help I need. Write down these statements and read them often, even if you don't believe them yet. Be patient with yourself. It took time for your depression to develop, and it will take time for your symptoms to improve. Do not take on too much or be too hard on yourself. Learn all you can about depression from written and online materials. Check out behavioral health classes to learn more about dealing with depression . Keep the numbers for these national suicide hotlines: 3-575-657- TALK (7-433-527 -5567) and 4-334-SUIC ANNI (5-239-526 -1766). If you or someone you know talks about suicide or feeling hopeless, get help right away. Hypothyroidism [id number] E03.9 Due for recheck Rheumatoid arthritis [address] Saavedra Hyperlipidemia 72301751 E78.5 diet should consist of a good spread of veggies, fruits, lean meats, and whole grains. Avoid foods high in saturated fats and trans fats. Overweight 741260434 E66 .3 Screening for malignant neoplasm of breast 843754319 Z12.39 Snoring 59931377 R06.83 Would like home sleep study [id number] NEDA Osullivan [facility] [address] [place] [address] 05/15/2023 10:22:22 05/16/2023 09:36:07 Depressive disorder [id number] F32.9 Controlled on paroxetine Hypothyroidism 39376895 E03.9 Controlled . Rheumatoid arthritis [address] Saavedra Screening for malignant neoplasm of breast 254573722 Z12.39 Hyperlipidemia 92203222 E78.5 diet should consist of a good spread of veggies, fruits, lean meats, and whole grains. Avoid foods high in saturated fats and trans fats. Routine gy necologic examination done [id number] 9101 Z01.419 Overweight 242671391 E66 .3 Trochanter ic bursitis of left hip [id number] 09582 M70.62 Will give bursitis injection in a 1:1 ratio for bursitis relief Vaginal dryness 15973125 N89.8 Discussed natural remedies otc including coconut oil, olive oil [id number] NEDA Osullivan [facility] [address] [place] [address] 06/10/2023 13:50:29 06/11/2023 11:16:46 Acute upper respiratory infection 79660264 J06.9 Get plenty of rest, push fluids, vaporizer, saline nasal spray, robitussin for cough prn, tylenol for CASANOVA prn, call back if persistent colored nasal drainage or sputum, fevers, sinus pain, SOB. Continue tylenol cold and sinus severe. Follow up if no improvemen t. [id number] NEDA Osullivan [facility] [address] [place] [address] 06/24/2023 14:11:18 06/25/2023 11:00:28 Internal hemorrhoids 87905451 K64.8 If no improvemen t with conservati ve treatment and stool softeners will refer to GI for banding Mixed anxi ety and depressive disorder [id number] F41.8 Worsening depression and anxiety- was on wellbutrin in the past but was D/C at OBGYN and started on paxil for menopausal symptomsRe start low dose buproprion for worsening symptoms and follow up in 6 weeks Be physically active. Getting 30 minutes of exercise each day is good for your body and your mind. Begin slowly if it is hard for you to get started, If you already exercise, keep it up. Plan something pleasant for yourself every day. Include activities that you have enjoyed in the past. Get enough sleep. Eat a balanced diet. If you do not feel hungry, eat small snacks rather than large meals. Do not drink alcohol, use illegal drugs, or take medicines that your doctor has not prescribed for you. They may interfere with your treatment. Spend time with family and friends. It may help to speak openly about your depression with people you trust. Take your medicines exactly as prescribed . Do not make major life decisions while you are depressed. Depression may change the way you think. You will be able to make better decisions after you feel better. Think positively . Challenge negative thoughts with statements such as I am hopeful ; Things will get better ; and I can ask for the help I need. Write down these statements and read them often, even if you don't believe them yet. Be patient with yourself. It took time for your depression to develop, and it will take time for your symptoms to improve. Do not take on too much or be too hard on yourself. Learn all you can about depression from written and online materials. Check out behavioral health classes to learn more about dealing with depression . Keep the numbers for these national suicide hotlines: 2-655-273- TALK (6-965-220 -9909) and 0-426-SUIC ANNI (5-087-304 -8510). If you or someone you know talks about suicide or feeling hopeless, get help right away. [id number] NEDA Osullivan [facility] [address] [place], [place] [address] 07/09/2023 10:07:31 07/09/2023 15:26:57 Internal hemorrhoids [id number] K64.[address] Herman and prevent constipati on Vaginal irritation 83596 6004 N89.8 Both episodes occurred after antibiotic use and hemorrhoid cream usePossibl e vaginal/ rectal fistula? Recommend stopping hydorcorti sone cream and following up with Hortencia obvious abnormalit y on physical exam- will send swab and treat for yeastStop hydorcorti sone creamGiven extreme itching will give hydroxyzin e- stressed importance of no suppositor ies at this time Pruritus of vagina 51185 003 L29.3 [id number] NEDA Osullivan [facility] [address] [place] [address] 07/25/2023 11:24:05 07/28/2023 12:48:55 Acute bronchitis 35974447 J20.9 Reassured lung sound normal and oxygen at 99% despite horrible, dry coughWill give albuterol for shortness of breathSter oids may cause irritabili ty, hunger, shakiness, insomnia, ache, raise blood pressure and/or blood sugar. Take with food and in the morning to lessen side effects. Will give z pack for bacterial coverage. Persistent cough 4503145 02 R05.3 [id number] NEDA Osullivan [facility] [address] [place] [address] 11/21/2023 10:29:11 11/24/2023 10:54:22 Adult health examination 606590789 Z00.00 Repeat pap in 6 months w/ breast exam Hyperlipidemia 76929502 E78.5 diet should consist of a good spread of veggies, fruits, lean meats, and whole grains. Avoid foods high in saturated fats and trans fats. Depressive disorder 3548 9007 F32.9 Controlled on paroxetine Hypothyroidism 42516066 E03.9 Due for recheck Rheumatoid arthritis [address] Saavedra Overweight 088050568 E66 .3 Pain of le ft hip joint 8331953288 81563 M25.552 Requested bursa injection- 6 months since her last one (which helped for 3-4 months)Gama l provide inj today, also recommend updating L hip and lumbar x-rays and referring back to pain management . Pt agreeable to plan. May have to do MRI and PT prior to referral which she is aware of. Low back pain 357197950 M54.50 [id number] NEDA Osullivan [facility] [address] [place] [address] 06/09/2024 10:20:42 06/10/2024 12:24:00 Hyperlipidemia 14380696 E78.5 diet should consist of a good spread of veggies, fruits, lean meats, and whole grains. Avoid foods high in saturated fats and trans fats. Depressive disorder 3548 9007 F32.9 Uncontroll ed per patientRes tart wellbutrin in the AM, continue PaxilFollo w up in 3 months Hypothyroidism 07546019 E03.9 Due for recheck Rheumatoid arthritis [address] Saavedra Overweight 590629547 E66 .3 Pain of le ft hip joint 3655373370 93820 M25.552 Chronic, following with rheumatolo gy Medication monitoring 39 9601220 Z51.81 Middle ear effusion 1004 019711 H74.8X9 No signs of infection, but middle ear fluid present. Pt to try fluticason e nasal spray + oral antihistam ine for 2 weeks with holding nose and blowing three times a day to open up eustachian tube Health Concerns Section Related Observation LastModified by Organization Detai ls LastModified Time None Recorded Concern Status LastModified by Organization Details LastModified Time None Recorded Advance Directives Directive N: Payers Encounter Date Sequence Insurance Name Policy Number Policy Mathew Covered Member ID Mathew Member ID Guarantor Name 06/24/2023 1 [place] 34F Drake Velázquez [id number] Catherine Velázquez 07/09/2023 1 [place] 34F Drake Velázquez [id number] Catherine Velázquez 07/25/2023 1 [place] 34F Drake Velázquez [id number] Catherine Velázquez 11/21/2023 1 [place] 33F Drake Velázquez [id number] Catherine Velázquez 06/09/2024 1 [place] 34F Drake Velázquez [id number] Catherine Velázquez Notes Date Note Type Note Provider Name and Address Organization Details Recorded Time 06/24/2023 text/html Rectal BleedingReported bypatient.Quality:pain ful Severity:moderate; moderate to severe Duration:present <1 month Timing:gradual Context:not related to bowel movement; noted in commode, only with wiping; possible hemrrhoids Modifying Factors:nothing gives relief; nothing makes it worse; putting suppository in the fridge hemorrhoid cream Associated Symptoms:no straining; no cramping;diarrhea Pt here for internal hemorrhoids for 2 weeks despite conservative treatment with baths and preperation H. Would like to discuss other options. NEDA Osullivan Attn: Accounting, [place], [address], [place] [facility] 06/24/2023 17:27:34 07/09/2023 text/html Urinary FrequencyReported bypatient.Severity:mod erate Duration:symptoms started a couple weeks ago Context:success with short term antibiotics Associated Symptoms:no abdominal pain; no back pain; no chills; no diarrhea; no dribbling; no pain with urination; normal emptying of bladder; no blood in the urine; no hesitancy; normal libido; no nausea; no vomiting; no nocturia; no urine odor; no straining; no incontinence; no fever; no feelings of urgency; no urge incontinence;constipat ion; itching and burning Pt here for vaginal irritation. On 06/10/2023 she was given abx for URI. She then saw me for internal hemorrhoids on 06/24/2023 and was given a prescription for hydorcortisone cream. She developed vaginal itching on 06/28/2023 and was given diflucan. She ended up going to urgent care for extreme vaginal itching and discomfort- had a very painful pelvic exam. Was put on antibiotics and steroids and diflucan. All symptoms resolved. Yesterday she began using hemorrhoid cream again and all vaginal symptoms returned. Is wondering if she could be having a reaction to the cream- she states she knows she is not putting the steroid cream into her vagina. NEDA Osullivan Attn: Accounting,[address] [place], [address], [facility] 07/09/2023 10:53:23 07/25/2023 text/html Sinusitis/Allerg yRepor bonnie bypatient.Associated Symptoms:fever/chills; headache;sore throat;ear fullness Duration:symptoms started Friday Context:recent sick contacts Pt here for 5 days of URI symptoms. Started with feeling feverish, chills, sore throat, and runny nose on Friday. She now has a constant cough and feels like she cannot catch her breath. She states her whole family has been sick in the past two weeks and has been passing it around. She has been taking delsym for her symptoms. NEDA Osullivan Attn: Accounting,[address] [place], [address], [facility] 07/25/2023 14:07:14 11/21/2023 text/html pt here for chasity ramos.pt would like to discuss her hip bursitis NEDA Osullivan Attn: Accounting,[address] [facility], [place], [address], [facility] 11/21/2023 14:24:01 06/09/2024 text/html Anxiety/Depressi onRepo rted bypatient.Quality:incr eased anxiety Severity:denies suicidal ideations; able to maintain relationships; does not interfere with activities of daily living Duration:symptoms lasting over 2 weeks Onset/Timing:still present Context:no major life stressors Modifying Factors:medications as directed Associated Symptoms:denies homicidal ideations; no significant weight gain; no significant weight loss; no visual/auditory hallucinations; no delusions; no shortness of breath; mood good; no crying spells; no panic; no isolation; sleeping well; appetite good; maintaining functionality;anxiety; depression;headaches 6 month f/u, patient also wants to discuss problem with ear(right ear) its full of fluid and make patient feel off balance. wants a referral NEDA Osullivan Attn: Accounting[address] [place], [address], [facility] 06/09/2024 11:12:34 OBGyn Episode No OBEpisode recorded.
--- OUTSIDE RECORDS SUMMARY | 2024-08-24 09:18 | XMS_ITS | Encounter Summary ---
Author Organization [facility] Healthcare Address [address] [place] [address] Care Team Providers Care Surgical Supply Assistant Name Role Phone Jossie Burks Primary Care Provider [phone] Encounter Details Date Type Department Care Team (Late st Contact Info) Description 08/23/2024 10:30 AM CDT Lab [address] [place], [place] [id number] High risk medication use; Rheumatoid arthritis involving multiple sites with positive rheumatoid factor (HCC); Elevated MCV; Other fatigue Social History Tobacco Use Types Packs/Day Years Used Date Smoking Tobacco: Former Cigarettes Passive Smoke Exposure: Past Smokeless Tobacco: Never Comments Unknown Sex and Gender Information Value Date Recorded Sex Assigned at Not on file Legal Sex Female 5:09 AM STAFF PSYCHIATRIST Gender Identity Not on file Sexual Orientation Not on file documented as of this encounter Plan of Treatment Pending Results Name Type Priority Associated Diagnoses Date /Time T-SPOT.TB Blood Microbiology Routine High risk medication use 08/23/2024 11:26 AM CDT documented as of this encounter Procedures Procedure Name Priority Date/Time Associated Diagnosis Comments EGFR Routine 08/23/2024 12:11 PM CDT High risk medication use DIFFERENTIAL AUTO Routine 08/23/2024 12: 11 PM CDT High risk medication use CBC WITH AUTO DIFFERENTIAL Routine 08/23/2024 12:11 PM CDT High risk medication use VITAMIN D 25 HYDROXY Routine 08/23/2024 12:11 PM CDT Other fatigue ERYTHROCYTE SEDIMENTATION RATE Routine 08/23/2024 12:11 PM CDT Rheumatoid arthritis involving multiple sites with positive rheumatoid factor (HCC) CRP (ACUTE PHASE) Routine 08/23/2024 12: 11 PM CDT Rheumatoid arthritis involving multiple sites with positive rheumatoid factor (HCC) FOLATE Routine 08/23/2024 12:11 PM CDT Elevated MCV Other fatigue VITAMIN B12 Routine 08/23/2024 12:11 PM CDT Elevated MCV Other fatigue COMPREHENSIVE METABOLIC PANEL Routine 08/23/2024 12:11 PM CDT High risk medication use documented in this encounter Results * eGFR (08/23/2024 12:11 PM CDT) eGFR 62 >=60 mL/min/1. 73 m2 Comment: Interpretive Data Reference Interval Normal >/= 90 mL/min/1.73m2 Mildly decreased* 60 - 89 mL/min/1.73m2 Mildly to moderately decreased 45 - 59 mL/min/1.73m2 Moderately to severely decreased 30 - 44 mL/min/1.73m2 Severely decreased 15 - 29 mL/min/1.73m2 Kidney Failure < 15 mL/min/1.73m2 *Relative to young adult level Estimated glomerular filtration rate is determined by the 2020 CKD-EPI equation recommended by the National Kidney Foundation (A Unifying Approach to GFR Estimation: Recommendations of the NKF-ASK Task Force on Reassessing the Inclusion of Race in Diagnosing Kidney Disease, JASN 202). The CKD-EPI equation should not be used for patients with unstable renal function and has not been validated in children and those over 70. Current interpretive data was last reviewed 2021. Blood 08/23/2024 12:1 1 PM CDT 08/23/2024 1:48 PM CDT us Mica R. Govero DIESEL LOCOMOTIVE ENGINEER LAB BLOOD ORDERABLES Final Result [facility] Department [place] [address] * Differential, auto (08/23/2024 12:11 PM CDT) Neutrophil abs 2.68 1.50 - 6.50 K/cumm Imm gran abs 0.02 0.00 - 0.10 K/cumm [facility] Lymphocyte abs 2.87 0.80 - 3.30 K/cumm [facility] Monocyte abs 0.60 0.20 - 0.80 K/cumm [facility] Eosinophil abs 0.11 0.00 - 0.50 K/cumm [facility] Basophil abs 0.04 0.00 - 0.10 K/cumm [facility] Neutrophil pct 42.5 % [facility] Comment: Interpretive Data Percent cell count reference ranges are not reported, since discordance with absolute values may lead to misinterpretation of CBC data. Current Interpretive Data was last revised on 2017. Imm gran pct 0.3 % [facility] Comment: Interpretive Data Percent cell count reference ranges are not reported, since discordance with absolute values may lead to misinterpretation of CBC data. Current Interpretive Data was last revised on 2017. Lymphocyte pct 45.4 % [facility] Comment: Interpretive Data Percent cell count reference ranges are not reported, since discordance with absolute values may lead to misinterpretation of CBC data. Current Interpretive Data was last revised on 2017. Monocyte pct 9.5 % [facility] Comment: Interpretive Data Percent cell count reference ranges are not reported, since discordance with absolute values may lead to misinterpretation of CBC data. Current Interpretive Data was last revised on 2017. Eosinophil pct 1.7 % [facility] Comment: Interpretive Data Percent cell count reference ranges are not reported, since discordance with absolute values may lead to misinterpretation of CBC data. Current Interpretive Data was last revised on 2017. Basophil pct 0.6 % [facility] Comment: Interpretive Data Percent cell count reference ranges are not reported, since discordance with absolute values may lead to misinterpretation of CBC data. Current Interpretive Data was last revised on 2017. Blood 08/23/2024 12:1 1 PM CDT 08/23/2024 1:40 PM CDT Mica Saavedra NP LAB BLOOD ORDERABLES Final Result Performing Organization Address City/[facility] Co de Phone Number [facility] [email or web address] [address] * Vitamin D 25 hydroxy (08/23/2024 12:11 PM CDT) Vitamin D 25-OH 48 30 - 80 ng/mL Blood 08/23/2024 12:1 1 PM CDT 08/23/2024 1:48 PM CDT Mica Saavedra NP LAB BLOOD ORDERABLES Final Result Performing Organization Address [facility] [place] [address] * Folate (08/23/2024 12:11 PM CDT) Folic acid >20.0 >=5.0 ng/mL Blood 08/23/2024 12:1 1 PM CDT 08/23/2024 1:48 PM CDT Mica Saavedra NP LAB BLOOD ORDERABLES Final Result Performing Organization Address City/[facility] Co de Phone Number [facility] [email or web address] [address] * (ABNORMAL) Vitamin B12 (08/23/2024 12:11 PM CDT) Vitamin B12 >2,000(H) 230 - 1,250 pg/mL Blood 08/23/2024 12:1 1 PM CDT 08/23/2024 1:48 PM CDT Mica Saavedra NP LAB BLOOD ORDERABLES Final Result Performing Organization Address City/[facility]/ZIP Co de Phone Number [facility] [email or web address] [address] * Erythrocyte sedimentation rate (08/23/2024 12:11 PM CDT) [facility] Erythrocyte sedimentation rate 10 1 - 30 mm/hr Blood 08/23/2024 12:1 1 PM CDT 08/23/2024 1:40 PM CDT Mica Saavedra NP LAB BLOOD ORDERABLES Final Result Performing Organization Address [facility] Co de Phone Number [facility] [email or web address] [address] * CRP (acute phase) (08/23/2024 12:11 PM CDT) [facility] CRP <0.5 <=10.0 mg/L Blood 08/23/2024 12:1 1 PM CDT 08/23/2024 1:48 PM CDT Mica Saavedra NP LAB BLOOD ORDERABLES Final Result Performing Organization Address [facility] Co de Phone Number [facility] [email or web address] [address] * (ABNORMAL) Comprehensive metabolic panel (08/23/2024 12:11 PM CDT) Pathologist [facility] Sodium 146(H) 135 - 145 mmol/L Potassium, pl 4.3 3.3 - 4.9 mmol/L [facility] Chloride 108 97 - 110 mmol/L [facility] CO2 29 22 - 32 mmol/L [facility] Anion gap 9 2 - 15 mmol/L [facility] BUN 12 6 - 25 mg/dL [facility] Creatinine 1.02 0.60 - 1.10 mg/dL [facility] Glucose 91 70 - 199 mg/dL [facility] Comment: Interpretive Data Fasting glucose >/= 126 mg/dl is diagnostic for diabetes. Fasting is defined as no caloric intake for at least 8 hours. Fasting glucose between 100 mg/dl to 125 mg/dl is diagnostic of prediabetes. In a patient with classic symptoms of hyperglycemia or hyperglycemic crisis, a random glucose >/= 200 mg/dl is diagnostic for diabetes. In the absence of unequivocal hyperglycemia, results should be confirmed by repeat testing. The classification and Diagnosis of Diabetes Diabetes Care 2021; 46: S19-S40. Current interpretive data was last revised 2022. Calcium 9.8 8.5 - 10.3 mg/dL [facility] Bilirubin, total 0.4 0.1 - 1.2 mg/dL [facility] Protein, pl 6.8 6.5 - 8.5 g/dL [facility] Albumin 4.3 3.5 - 5.0 g/dL [facility] Alk phos 81 40 - 130 Units/L [facility] ALT 22 7 - 45 Units/L [facility] AST 30 10 - 45 Units/L [facility] Blood 08/23/2024 12:1 1 PM CDT 08/23/2024 1:48 PM CDT Mica Saavedra DIESEL LOCOMOTIVE ENGINEER LAB BLOOD ORDERABLES Final Result [facility] Department [place] [address] * (ABNORMAL) CBC with auto differential (08/23/2024 12:11 PM CDT) [facility] WBC 6.32 3.80 - 9.90 K/cumm Hgb 13.8 11.9 - 15.5 g/dL [facility] Hct 40.2 35.6 - 45.5 % [facility] Plt 233 150 - 400 K/cumm [facility] MPV 10.3 9.1 - 12.3 fL [facility] RBC 3.94 3.90 - 5.20 M/cumm [facility] MCV 102.0(H) 81.3 - 96.4 fL [facility] MCH 35.0(H) 27.1 - 33.3 pg [facility] MCHC 34.3 32.3 - 35.7 g/dL [facility] RDW CV 13.2 11.1 - 14.9 % [facility] RDW SD 49.6(H) 35.7 - 48.1 fL [facility] NRBC abs 0.00 0.00 - 0.01 K/cumm [facility] Blood 08/23/2024 12:1 1 PM CDT 08/23/2024 1:40 PM CDT us Mica Saavedra DIESEL LOCOMOTIVE ENGINEER LAB BLOOD ORDERABLES Final Result [facility] Department [place] [address] documented in this encounter Visit Diagnoses Diagnosis High risk medication use Rheumatoid arthritis involving multiple sites with positive rheumatoid factor (HCC) Elevated MCV Other abnormality of red blood cells Other fatigue documented in this encounter Care Teams Surgical Supply Assistant Relationship Specialty Start Date End Date Jossie Burks PA [address] [address] PCP - General Physician Drain Tile Machine Operator 10/04/22 documented as of this encounter
--- OUTSIDE RECORDS SUMMARY | 2024-08-24 09:18 | XMS_ITS | Encounter Summary ---
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 Name Role Phone Jossie Burks Primary Care Provider [phone] Reason for Visit * Reason Comments Follow-up Encounter Details Date Type Department Care Team (Late st Contact Info) Description 08/23/2024 10:00 AM CDT Office Visit [facility] Rheumatology [address] [place] [address] Mica Saavedra, SECRETARY OF POLICE [address] [place] [address] Rheumatoid arthritis involving multiple sites with positive rheumatoid factor (HCC) (Primary Dx); High risk medication use; Elevated MCV; Other fatigue Social History Tobacco Use Types Packs/Day Years Used Date Smoking Tobacco: Former Cigarettes Passive Smoke Exposure: Past Smokeless Tobacco: Never Tobacco Cessation:Counseling Given: Not Answered Comments Unknown Sex and Gender Information Value Date Recorded Sex Assigned at Not on file 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 Gender Identity Not on file Sexual Orientation Not on file documented as of this encounter Last Filed Vital Signs Vital Sign Reading Time Taken Comments Blood Pressure 120/79 08/23/2024 9:53 AM CDT Pulse 70 08/23/2024 9:53 AM CDT Temperature 37 C (98.6 F) 08/23/2024 9:53 AM CDT Respiratory Rate - - Oxygen Saturation 98% 08/23/2024 9:53 AM CDT Inhaled Oxygen Concentration - - Weight 81.6 kg (180 lb) 08/23/2024 9:53 AM CDT Height 167.6 cm (5' 6 ) 08/23/2024 9:53 AM CDT Body Mass Index 29.05 08/23/2024 9:53 AM CDT documented in this encounter Ordered Prescriptions Prescription Sig Dispense Quantity Refills Last Filled Start Date End Date hydroxychloroquine (PLAQUENIL) 200 mg tablet Take 1 tablet (200 mg total) by mouth 2 (two) times a day 180 tablet 1 08/23/2024 documented in this encounter Progress Notes * Mica Saavedra, SECRETARY OF POLICE - 08/23/2024 10:00 AM CDT Subjective/Objective Patient ID: Catherine Velázquez is a 64 y.o. female. Chief Complaint Follow-up HPI Catherine is here today for followup seropositive RA. Medical history of neuropathy in the feet, hyperlipidemia, migraines, hypothyroidism, C. and L- spine pain, depression, chronic fatigue, IBS. Catherine is taking Enbrel 50 mg subcutaneous once weekly. No injection site reactions, or other sideeffects. She also takes Plaquenil 200 mg daily, methotrexate 7 tablets weekly, nabumetone 500 mg b.i.d. and folic acid 3 mg daily. No side effects. Folic acid was increased for macrocytosis. She started B12 [id number] supplements for B12 of 344 in August 2023. Morning stiffness is lasting hours. Left 1st MTP with some swelling. No other joint swelling. She has generalized joint pain that is usually mild to moderate. She feels that the Enbrel really helps with her joint symptoms. If she has had the stop it for antibiotic use she has a lot of increased joint pain usually the week after it is new. Saw ENT for ear fullness. No cause was found. Follow-up in [address] of the temporal bones July 23, 2024 was essentially normal. She was given a prednisone taper that did not help with her ear fullness much. Joint pain is still moderate. Chronic low back pain that is unchanged. Neck pain intermittently. Joint pain is made worse with use of her hands, cold temperatures or weather changes. Tylenol as needed helps a little with the joint pain. Mammogram is due tomorrow Monitoring blood work CBC and CMP to evaluate for adverse effects of methotrexate 02/12/24 MCV 105.1, WBC, RBC, platelet count, H&H normal. GFR 58, creatinine 1.08, liver enzymes normal 08/2023 QuantiFERON negative 06/2023 Eye exam completed -no hydroxychloroquine toxicity. This was completed this month and she will have the note sent to me. She did see a retinal specialist. Told her eyes look fine she has developing cataracts. 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 Chronic low back pain She had C-spine discectomy/fusion with cadaver bone December [address] Duvall. Raynaud's has been stable. Usually worse in the winter. She denies any digital ulcers and is compliant with warming techniques. +fatigue +dry eyes ROS Review of systems per HPI and otherwise all other systems are negative. Physical Exam General: Pleasant WF in NAD. HEENT: NC, anicteric sclera, no scleral injection Skin: No rashes, No Raynauds noted on exam. No digital ulcers. Musculoskeletal system: Luis shoulder with discomfort. Right elbow with tenderness no swelling. Left elbow without tenderness or swelling. Luis wrist with tenderness no swelling. No contractures. Luis 1st through 3rd MCPs with slight chronic enlargement, R>L tenderness, no synovitis or erythema. All other Bilateral MCP no tenderness, no synovitis. Bilateral PIPs tenderness no synovitis. DIPs without tenderness, Luis knees without tenderness. Bilateral ankles with tenderness no swelling. Bilateral MTPs squeeze positive Neuro: A/O x3, appropriate Assessment/Plan Diagnoses and all orders for this visit: Rheumatoid arthritis involving multiple sites with positive rheumatoid factor (HCC) (Primary) - CRP (acute phase); Future - Erythrocyte sedimentation rate; Future High risk medication use - T-SPOT.TB Blood; Future - CBC with auto differential; Future - Comprehensive metabolic panel; Future Elevated MCV - Vitamin B12; Future - Folate; Future Other fatigue - Vitamin B12; Future - Folate; Future - Vitamin D 25 hydroxy; Future Other orders - hydroxychloroquine (PLAQUENIL) 200 mg tablet; Take 1 tablet (200 mg total) by mouth 2 (two) timesa day Catherine will continue her current regimen. Microcytosis, fatigue will check B12 and folate levels. Continue B12 supplement. Increase hydroxychloroquine to 200 mg b.i.d.. She will have the ophthalmology notes sent to me for review. Other considerations is to increase methotrexate. We briefly discussed leflunomide if needed or infusions. Mammogram is due tomorrow #Seropositive RA- 05/21 RF 17, ERNESTO 07/19 CCP negative, hepatitis B, C. and HIV negative. Stop Humira partially effective hydroxychloroquine 200 mg daily started July 2016 -increase hydroxychloroquine 200 mg bid Continue methotrexate 7 tablets once weekly, folic acid 3 mg once daily. -continue nabumetone 500 mg b.i.d. reduced back to once daily if her joint symptoms improve - monitoring labs; CBC, CMP every 3 months current orders at [facility]. Continue Enbrel 50 mg subcu once weekly. #Raynauds -No digital ulcers -encouraged warming techniques, keeping the core warm. Keeping hands well moisturized. Her symptomsare typically worse in the winter. Influenza up-to-date fall She has also received pneumonia vaccines and Shingrix x1. 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 Special Delivery Carrier variances may occur. documented in this encounter Plan of Treatment Pending Results Name Type Priority Associated Diagnoses Date /Time T-SPOT.TB Blood Microbiology Routine High risk medication use 08/23/2024 11:26 AM CDT Scheduled Orders Name Type Priority Associated Diagnoses Orde r Schedule T-SPOT.TB Blood Microbiology Routine High risk medication use Expected: 08/23/2024, Expires: 08/23/2025 documented as of this encounter Results * Vitamin D 25 hydroxy (08/23/2024 12:11 PM CDT) Vitamin D 25-OH 48 30 - 80 ng/mL Blood 08/23/2024 12:1 1 PM CDT 08/23/2024 1:48 PM CDT Mica Saavedra NP LAB BLOOD ORDERABLES Final Result [facility] [place] [address] * Folate (08/23/2024 12:11 PM CDT) [facility] Folic acid >20.0 >=5.0 ng/mL Blood 08/23/2024 12:1 1 PM CDT 08/23/2024 1:48 PM CDT Mica Saavedra NP LAB [place] [address] * (ABNORMAL) Vitamin B12 (08/23/2024 12:11 PM CDT) [facility] Vitamin B12 >2,000(H) 230 - 1,250 pg/mL Blood 08/23/2024 12:1 1 PM CDT 08/23/2024 1:48 PM CDT Mica Saavedra NP LAB [place] [address] * Erythrocyte sedimentation rate (08/23/2024 12:11 PM CDT) [facility] Erythrocyte sedimentation rate 10 1 - 30 mm/hr Blood 08/23/2024 12:1 1 PM CDT 08/23/2024 1:40 PM CDT Mica Saavedra NP LAB BLOOD ORDERABLES Final Result Performing Organization Address City/[facility]/[place] [address] * CRP (acute phase) (08/23/2024 12:11 PM CDT) CRP <0.5 <=10.0 mg/L Blood 08/23/2024 12:1 1 PM CDT 08/23/2024 1:48 PM CDT us Mica Saavedra NP LAB BLOOD ORDERABLES Final Result [facility] [address] [facility] Department [place] [address] * (ABNORMAL) Comprehensive metabolic panel (08/23/2024 12:11 PM CDT) Sodium 146(H) 135 - 145 mmol/L Potassium, pl 4.3 3.3 - 4.9 mmol/L [facility] Chloride 108 97 - 110 mmol/L [facility] CO2 29 22 - 32 mmol/L [facility] Anion gap 9 2 - 15 mmol/L [facility] BUN 12 6 - 25 mg/dL [facility] Creatinine 1.02 0.60 - 1.10 mg/dL [facility] Glucose 91 70 - 199 mg/dL [facility] Comment: Interpretive Data Fasting glucose >/= 126 [...] 2022. Calcium 9.8 8.5 - 10.3 mg/dL [facility] Bilirubin, total 0.4 0.1 - 1.2 mg/dL [facility] Protein, pl 6.8 6.5 - 8.5 g/dL [facility] Albumin 4.3 3.5 - 5.0 g/dL [facility] Alk phos 81 40 - 130 Units/L [facility] ALT 22 7 - 45 Units/L [facility] AST 30 10 - 45 Units/L [facility] Blood 08/23/2024 12:1 1 PM CDT 08/23/2024 1:48 PM CDT us Mica Saavedra SECRETARY OF POLICE LAB BLOOD ORDERABLES Final Result Performing Organization Address [facility]/ZIP Co de Phone Number [facility] [place] [address] * (ABNORMAL) CBC with auto differential (08/23/2024 12:11 PM CDT) [facility] WBC 6.32 3.80 - 9.90 K/cumm Hgb 13.8 11.9 - 15.5 g/dL [facility] Hct 40.2 35.6 - 45.5 % [facility] Plt 233 150 - 400 K/cumm [facility] MPV 10.3 9.1 - 12.3 fL [facility] RBC 3.94 3.90 - 5.20 M/cumm [facility] MCV 102.0(H) 81.3 - 96.4 fL [facility] MCH 35.0(H) 27.1 - 33.3 pg [facility] MCHC 34.3 32.3 - 35.7 g/dL [facility] RDW CV 13.2 11.1 - 14.9 % [facility] RDW SD 49.6(H) 35.7 - 48.1 fL [facility] NRBC abs 0.00 0.00 - 0.01 K/cumm [facility] Blood 08/23/2024 12:1 1 PM CDT 08/23/2024 1:40 PM CDT us Mica Saavedra NP LAB BLOOD ORDERABLES Final Result Performing Organization Address City/[facility]/[place] [address] documented in this encounter Visit Diagnoses Diagnosis Rheumatoid arthritis involving multiple sites with positive rheumatoid factor (HCC)- Primary High risk medication use Elevated MCV Other abnormality of red blood cells Other fatigue documented in this encounter Discontinued Medications Medication Sig Discontinue Reason Start Date End Da te atorvastatin (LIPITOR) 20 mg tablet Take 2 tablets (40 mg total) by mouth daily Alternate therapy 09/10/2022 08/23/2024 hydroxychloroquine (PLAQUENIL) 200 mg tablet Take 1 tablet (200 mg total) by mouth daily Reorder 11/05/2023 08/23/2024 documented as of this encounter Historical Medications * This list may reflect changes made after this encounter. 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
--- OUTSIDE RECORDS SUMMARY | 2024-08-24 09:18 | XMS_ITS | Referral Summary ---
Author Organization [facility] Address [address] [place] [address] Care Team Providers Care Armed Custom Protection Officer Name Role Phone Jossie Burks Primary Care Provider [phone] Encounters Date Type Department Care Team Description 08/23/2024 10:30 AM CDT Lab [facility] [address] [place] [address] High risk medication use; Rheumatoid arthritis involving multiple sites with positive rheumatoid factor (HCC); Elevated MCV; Other fatigue 08/23/2024 10:00 AM CDT Office Visit [facility] Rheumatology [address] [place] [address] Mica Saavedra NP Rheumatoid arthritis involving multiple sites with positive rheumatoid factor (HCC) (Primary Dx); High risk medication use; Elevated MCV; Other fatigue 07/23/2024 Results Follow-Up [facility] Otolaryngology [address] [place] [phone] Naun Seo II, MD 07/23/2024 7:17 AM CDT - 07/23/2024 11:59 PM CDT Hospital Encounter [facility] [address] [place] [address] Mixed conductive and sensorineural hearing loss of right ear with restricted hearing of left ear Discharge Disposition: Discharge to home or self care 07/09/2024 Telephone [facility] Otolaryngology [address] [place] [phone] Josselin Buenrostro LPN Steroids didn't help 06/28/2024 8:30 AM COUNTER SUPERVISOR Procedure visit [facility] Otolaryngology [address] [place] [phone] Lindsay Campos Sensorineural hearing loss (SNHL) of both ears (Primary Dx) 06/28/2024 9:00 AM COUNTER SUPERVISOR Office Visit [facility] Otolaryngology [address] [place] [phone] Naun Seo II, MD Dysfunction of right eustachian tube (Primary Dx); Mixed conductive and sensorineural hearing loss of right ear with restricted hearing of left ear from Last 3 Months Allergies Active Allergy Reactions Criticality Noted Date Comments Ciprofloxacin Rash Medium 12/20/2011 Doxycycline Rash Medium 04/24/2022 Erythromycin Stomach upset Low Meperidine Rash Medium 12/20/2011 Penicillins Rash Medium 12/20/2011 Sulfa (Sulfonamide Antibiotics) Stomach upset Low 02/08/2016 Stomach/GI Upset Tramadol Rash Medium 03/03/2013 Medications levothyroxine (SYNTHROID, LEVOTHROID) 50 mcg tablet levothyroxine 50 mcg tablet TAKE ONE TABLET BY MOUTH ONCE DAILY IN THE MORNING ON AN EMPTY STOMACH Active yalkqumg-qpb-a errous fumarate 9 mg iron/15 mL liquid Take by mouth Active biotin 5 mg tablet Take by mouth daily Active PARoxetine (PAXIL) 40 mg tablet Take 1 tablet (40 mg total) by mouth daily 10/25/19 20 Active calcium carbonate (CALCIUM 600 ORAL) Take by mouth daily Active cetirizine (ZyrTEC) 10 mg tablet Take 1 tablet (10 mg total) by mouth daily Active cyanocobalamin (Vitamin B-12) 1,000 mcg tabletIndicati ons:Prevention of Vitamin B12 Deficiency Take 1 tablet (1,000 mcg total) by mouth daily 30 tablet 5 08/13/19 24 Active gabapentin (NEURONTIN) 300 mg capsule nightly Activ e gabapentin (NEURONTIN) 100 mg capsule daily 03/15/20 24 Active methotrexate 2.5 mg tabletIndicati ons:Rheumatoid Arthritis Take 7 tablets (17.5 mg total) by mouth every 7 days 84 tablet 1 04/22/20 24 Active nabumetone (RELAFEN) 500 mg tablet Take 1 tablet (500 mg total) by mouth 2 (two) times a day 180 tablet 1 04/22/20 24 Active etanercept (EnbreL SureClick) 50 mg/mL (1 mL) pen injectorIndica tions:Rheumato id Arthritis Inject 1 mL (50 mg total) under the skin once a week 12 mL 3 04/22/20 24 Active folic acid (FOLVITE) 1 mg tablet Take 3 tablets (3,000 mcg total) by mouth daily 270 tablet 3 04/22/20 24 Active buPROPion XL (WELLBUTRIN XL) 150 mg 24 hr tablet Take 1 tablet (150 mg total) by mouth daily Active omega-3 fatty acids-fish oil 300-1,000 mg capsule Take 2 capsules (2 g total) by mouth daily Active fluticasone propionate (FLONASE) 50 mcg/actuation nasal spray Administer 2 sprays into each nostril daily Active atorvastatin (LIPITOR) 40 mg tablet Take 1 tablet (40 mg total) by mouth daily 06/14/19 25 Active clindamycin (CLEOCIN T) 1 % lotion APPLY SMALL AMOUNT TO FULL FACE 1-2 TIMES DAILY 07/28/19 25 Active hydroxychloroq uine (PLAQUENIL) 200 mg tablet Take 1 tablet (200 mg total) by mouth 2 (two) times a day 180 tablet 1 08/24/19 25 Active atorvastatin (LIPITOR) 20 mg tablet Take 2 tablets (40 mg total) by mouth daily 09/11/19 23 025 Discontin ued(Alter ramos therapy) hydroxychloroq uine (PLAQUENIL) 200 mg tablet Take 1 tablet (200 mg total) by mouth daily 90 tablet 3 11/05/19 24 025 Discontin ued(Reord er) Active Problems Problem Noted Date Diagnosed Date Dysfunction of right eustachian tube 06/28/2024 Mixed conductive and sensori neural hearing loss of right ear with restricted hearing of left ear 06/28/2024 Rheumatoid arthritis involvi ng multiple sites with positive rheumatoid factor 01/16/2018 Hip pain, left 08/12/2017 Left hip pain 08/12/2017 Arthritis 07/24/2017 Joint stiffness 06/27/2017 Joint swelling 06/27/2017 Postmenopausal bleeding 03/17/2017 High risk medication use 02/07/2017 Raynaud's syndrome 01/07/2017 Raynaud's disease 01/07/2017 Chronic pain 12/05/2016 Stenosis of intervertebral foramina 12/05/2016 Spinal stenosis 12/05/2016 Thyroid disorder 12/05/2016 Osteoarthritis of cervical spine 11/04/2016 Neck pain 10/31/2016 Arthralgia 07/05/2016 Spine pain, multilevel 07/05/2016 Calcific tendinitis of shoulder 02/20/2016 Depressive disorder 03/28/2014 Migraine 03/03/2013 Hypothyroidism 12/23/2012 Pure hyperglyceridemia 06/22/2012 Osteoarthritis of spine with radiculopathy, cerv ical region 12/23/2011 Immunizations Immunization Administration Dates Next Due Influenza, Quadrivalent, Radha l Culture-based MDCK, Preservative Free, Antibiotic Free, Intramuscular 03/17/2018 Influenza, Quadrivalent, Spl it, Intramuscular 02/14/2017,06/11/2016 Influenza, Trivalent, IM (MDV) 01/28/2014,2012,04/10/2011 Influenza, Trivalent, Preser vative Free, Intramuscular 02/14/2017,02/10/2015 Td, adsorbed 04/05/2009 Social History Tobacco Use Types Packs/Day Years Used Date Smoking Tobacco: Former Cigarettes Passive Smoke Exposure: Past Smokeless Tobacco: Never Tobacco Cessation:Counseling Given: Not Answered Comments Unknown Sex and Gender Information Value Date Recorded Sex Assigned at Not on file Legal Sex Female 5:09 AM COUNTER SUPERVISOR Gender Identity Not on file Sexual Orientation Not on file Last Filed Vital Signs Vital Sign Reading Time Taken Comments Blood Pressure 120/79 08/23/2024 9:53 AM CDT Pulse 70 08/23/2024 9:53 AM CDT Temperature 37 C (98.6 F) 08/23/2024 9:53 AM CDT Respiratory Rate 18 06/28/2024 8:59 AM COUNTER SUPERVISOR Oxygen Saturation 98% 08/23/2024 9:53 AM CDT Inhaled Oxygen Concentration - - Weight 81.6 kg (180 lb) 08/23/2024 9:53 AM CDT Height 167.6 cm (5' 6 ) 08/23/2024 9:53 AM CDT Body Mass Index 29.05 08/23/2024 9:53 AM CDT Plan of Treatment Not on file Procedures Procedure Name Priority Date/Time Associated Diagnosis Comments EGFR Routine 08/23/2024 12:11 PM CDT High risk medication use DIFFERENTIAL AUTO Routine 08/23/2024 12:11 PM CDT High risk medication use VITAMIN D 25 HYDROXY Routine 08/23/2024 12:11 PM CDT Other fatigue FOLATE Routine 08/23/2024 12:11 PM CDT Elevated MCV Other fatigue VITAMIN B12 Routine 08/23/2024 12:11 PM CDT Elevated MCV Other fatigue ERYTHROCYTE SEDIMENTATION RATE Routine 08/23/2024 12:11 PM CDT Rheumatoid arthritis involving multiple sites with positive rheumatoid factor (HCC) CRP (ACUTE PHASE) Routine 08/23/2024 12:11 PM CDT Rheumatoid arthritis involving multiple sites with positive rheumatoid factor (HCC) COMPREHENSIVE METABOLIC PANEL Routine 08/23/2024 12:11 PM CDT High risk medication use CBC WITH AUTO DIFFERENTIAL Routine 08/23/2024 12:11 PM CDT High risk medication use CT TEMPORAL BONES WO CONTRAST Schedule Routine, Read Routine (OP Routine) 07/23/2024 7:40 AM CDT Mixed conductive and sensorineural hearing loss of right ear with restricted hearing of left ear COMPREHENSIVE METABOLIC PANEL Routine 05/26/2024 8:02 AM COUNTER SUPERVISOR High risk medication use CBC WITH AUTO DIFFERENTIAL Routine 05/26/2024 8:02 AM COUNTER SUPERVISOR High risk medication use SERUM HEPATITIS C AB Routine 07/05/2016 9:03 AM COUNTER SUPERVISOR from Last 3 Months or Most Recently Relevant to Health Maintenance Results * eGFR (08/23/2024 12:11 PM CDT) [...] of Race in Diagnosing Kidney Disease, JASN 2020). The CKD-EPI equation should not be used for patients with unstable renal function and has not been validated in children and those over 70. Current interpretive data was last reviewed 2021. Blood 08/23/2024 12:1 1 PM CDT 08/23/2024 1:48 PM CDT us Mica Saavedra NP LAB BLOOD ORDERABLES Final Result [facility] [address] [facility] [place] [address] * Differential, auto (08/23/2024 12:11 PM CDT) Pathologist [facility] Neutrophil abs 2.68 1.50 - 6.50 K/cumm Imm gran abs 0.02 0.00 - 0.10 K/cumm [facility] Lymphocyte abs 2.87 0.80 - 3.30 K/cumm [facility] Monocyte abs 0.60 0.20 - 0.80 K/cumm [facility] Eosinophil abs 0.11 0.00 - 0.50 K/cumm [facility] Basophil abs 0.04 0.00 - 0.10 K/cumm [facility] Neutrophil pct 42.5 % [facility] Comment: Interpretive Data Percent cell count reference ranges are not reported, since discordance with absolute values may lead to misinterpretation of CBC data. Current Interpretive Data was last revised on 2017. Imm gran pct 0.3 % [facility] Comment: Interpretive Data Percent cell count reference ranges are not reported, since discordance with absolute values may lead to misinterpretation of CBC data. Current Interpretive Data was last revised on 2017. Lymphocyte pct 45.4 % [facility] Comment: Interpretive Data Percent cell count reference ranges are not reported, since discordance with absolute values may lead to misinterpretation of CBC data. Current Interpretive Data was last revised on 2017. Monocyte pct 9.5 % [facility] Comment: Interpretive Data Percent cell count reference ranges are not reported, since discordance with absolute values may lead to misinterpretation of CBC data. Current Interpretive Data was last revised on 2017. Eosinophil pct 1.7 % [facility] Comment: Interpretive Data Percent cell count reference ranges are not reported, since discordance with absolute values may lead to misinterpretation of CBC data. Current Interpretive Data was last revised on 2017. Basophil pct 0.6 % [facility] Comment: Interpretive Data Percent cell count reference ranges are not reported, since discordance with absolute values may lead to misinterpretation of CBC data. Current Interpretive Data was last revised on 2017. Blood 08/23/2024 12:1 1 PM CDT 08/23/2024 1:40 PM CDT us Mica Saavedra NP LAB BLOOD ORDERABLES Final Result [facility] [address] [facility] [place] [address] * (ABNORMAL) CBC with auto differential (08/23/2024 12:11 PM CDT) WBC 6.32 3.80 - 9.90 K/cumm Hgb 13.8 11.9 - 15.5 g/dL [facility] Hct 40.2 35.6 - 45.5 % [facility] Plt 233 150 - 400 K/cumm [facility] MPV 10.3 9.1 - 12.3 fL [facility] RBC 3.94 3.90 - 5.20 M/cumm [facility] MCV 102.0(H) 81.3 - 96.4 fL [facility] MCH 35.0(H) 27.1 - 33.3 pg [facility] MCHC 34.3 32.3 - 35.7 g/dL [facility] RDW CV 13.2 11.1 - 14.9 % [facility] RDW SD 49.6(H) 35.7 - 48.1 fL [facility] NRBC abs 0.00 0.00 - 0.01 K/cumm [facility] Blood 08/23/2024 12:1 1 PM CDT 08/23/2024 1:40 PM CDT Mica Saavedra FRENCH COMBER LAB BLOOD ORDERABLES Final Result [facility] [place] [address] * Vitamin D 25 hydroxy (08/23/2024 12:11 PM CDT) Pathologist [facility] Vitamin D 25-OH 48 30 - 80 ng/mL Blood 08/23/2024 12:1 1 PM CDT 08/23/2024 1:48 PM CDT Mica Saavedra FRENCH COMBER LAB BLOOD ORDERABLES Final Result [facility] [place] [address] * Erythrocyte sedimentation rate (08/23/2024 12:11 PM CDT) Pathologist [facility] Erythrocyte sedimentation rate 10 1 - 30 mm/hr Blood 08/23/2024 12:1 1 PM CDT 08/23/2024 1:40 PM CDT us Mica Saavedra FRENCH COMBER LAB BLOOD ORDERABLES Final Result Performing Organization Address City/[facility] Co de Phone Number [facility] [place] [address] * CRP (acute phase) (08/23/2024 12:11 PM CDT) CRP <0.5 <=10.0 mg/L Blood 08/23/2024 12:1 1 PM CDT 08/23/2024 1:48 PM CDT us Mica Saavedra FRENCH COMBER LAB BLOOD ORDERABLES Final Result Performing Organization Address [facility] de Phone Number [facility] [place] [address] * Folate (08/23/2024 12:11 PM CDT) Folic acid >20.0 >=5.0 ng/mL Blood 08/23/2024 12:1 1 PM CDT 08/23/2024 1:48 PM CDT us Mica Saavedra FRENCH COMBER LAB BLOOD ORDERABLES Final Result Performing Organization Address [facility] Co de Phone Number [facility] [place] [address] * (ABNORMAL) Vitamin B12 (08/23/2024 12:11 PM CDT) Vitamin B12 >2,000(H) 230 - 1,250 pg/mL Blood 08/23/2024 12:1 1 PM CDT 08/23/2024 1:48 PM CDT us Mica Saavedra FREN[employer]BER LAB BLOOD ORDERABLES Final Result Performing Organization Address City/[facility] Co de Phone Number [facility] [place] [address] * (ABNORMAL) Comprehensive metabolic panel (08/23/2024 12:11 PM CDT) Sodium 146(H) 135 - 145 mmol/L Potassium, pl 4.3 3.3 - 4.9 mmol/L [facility] Chloride 108 97 - 110 mmol/L [facility] CO2 29 22 - 32 mmol/L [facility] Anion gap 9 2 - 15 mmol/L [facility] BUN 12 6 - 25 mg/dL [facility] Creatinine 1.02 0.60 - 1.10 mg/dL [facility] Glucose 91 70 - 199 mg/dL [facility] Comment: Interpretive Data Fasting glucose >/= [...] 2022. Calcium 9.8 8.5 - 10.3 mg/dL [facility] Bilirubin, total 0.4 0.1 - 1.2 mg/dL [facility] Protein, pl 6.8 6.5 - 8.5 g/dL [facility] Albumin 4.3 3.5 - 5.0 g/dL [facility] Alk phos 81 40 - 130 Units/L [facility] ALT 22 7 - 45 Units/L [facility] AST 30 10 - 45 Units/L [facility] Blood 08/23/2024 12:1 1 PM CDT 08/23/2024 1:48 PM CDT us Mica Saavedra FREN[employer]BER LAB BLOOD ORDERABLES Final Result [facility] [place] [address] * CT Temporal Bones WO Contrast (07/23/2024 7:40 AM CDT) Anatomical Region Laterality Modality Head and Neck N/A Computed Tomogra phy 07/23/2024 11:1 8 AM CDT Narrative 07/23/2024 3:18 PM CDT EXAM DESCRIPTION: CT TEMPORAL BONES WO CONTRAST REASON FOR STUDY: Hearing loss, conductive, possible semicircular canal dehiscence Right ear fullness, hearing loss for 1 year with loss of balance at times TECHNIQUE: Noncontrast thin section axial images through the temporal bones and skull base were obtained and reviewed at bone windows and bone algorithm with coronal. Automated exposure control was used as a dose optimization technique for this examination. COMPARISON: No comparison. FINDINGS: RIGHT SIDE: EXTERNAL AUDITORY CANAL: Widely patent. TYMPANIC MEMBRANE: No masses, thickening or medial retraction. OSSICLES: Normal. MIDDLE EAR, EPITYMPANUM and HYPOTYMPANUM: No abnormal soft tissue, fluid or mass INNER EAR STRUCTURES: Normal vestibule and cochlea. Normal aqueducts. Normal semicircular canals. Normal bone covering all of the semicircular canals. No findings to indicate dehiscence. INTERNAL AUDITORY CANAL: Normal bony canal without narrowing or widening. No calcified or ossified masses. TEMPOROMANDIBULAR JOINT: Normal. MASTOID AIR CELLS: No fluid or mucosal thickening. LEFT SIDE: EXTERNAL AUDITORY CANAL: Widely patent. TYMPANIC MEMBRANE: No masses, thickening or medial retraction. OSSICLES: Normal. MIDDLE EAR, EPITYMPANUM and HYPOTYMPANUM: No abnormal soft tissue, fluid or mass INNER EAR STRUCTURES: Normal vestibule and cochlea. Normal aqueducts. Normal semicircular canals. INTERNAL AUDITORY CANAL: Normal bony canal without narrowing or widening. No calcified or ossified masses. TEMPOROMANDIBULAR JOINT: Normal. MASTOID AIR CELLS: No fluid or mucosal thickening. CENTRAL SKULL BASE: Normal foramina. No lytic or blastic lesions. INFERIOR BRAIN: Limited view. No acute findings. LIMITED VIEW OF PARANASAL SINUSES IN THE FIELD OF VIEW: Well-aerated. OTHER: No other significant finding. IMPRESSION: Unremarkable CT of the temporal bones. No findings to indicate semicircular canal dehiscence. THIS IS AN ELECTRONICALLY VERIFIED FINAL REPORT 07/23/2024 3:18 PM - Electronically signed by Jayne Diaz M.D. LC T: Report ID: [id number] Reading Location: [place] [address] Procedure Note Amena Diaz MD - 07/23/2024 EXAM DESCRIPTION: CT TEMPORAL BONES WO CONTRAST REASON FOR STUDY: Hearing loss, conductive, possible semicircular canal dehiscence Right ear fullness, hearing loss for 1 year with loss of balance at times TECHNIQUE: Noncontrast thin section axial images through the temporalbones and skull base were obtained and reviewed at bone windows and bonealgorithm with coronal. Automated exposure control was used as a dose optimization technique for this examination. COMPARISON: No comparison. FINDINGS: RIGHT SIDE: EXTERNAL AUDITORY CANAL: Widely patent. TYMPANIC MEMBRANE: No masses, thickening or medial retraction. OSSICLES: Normal. MIDDLE EAR, EPITYMPANUM and HYPOTYMPANUM: No abnormal soft tissue, fluidor mass INNER EAR STRUCTURES: Normal vestibule and cochlea. Normal aqueducts. Normal semicircular canals. Normal bone covering all of the semicircular canals. No findings to indicate dehiscence. INTERNAL AUDITORY CANAL: Normal bony canal without narrowing orwidening. No calcified or ossified masses. TEMPOROMANDIBULAR JOINT: Normal. MASTOID AIR CELLS: No fluid or mucosal thickening. LEFT SIDE: EXTERNAL AUDITORY CANAL: Widely patent. TYMPANIC MEMBRANE: No masses, thickening or medial retraction. OSSICLES: Normal. MIDDLE EAR, EPITYMPANUM and HYPOTYMPANUM: No abnormal soft tissue, fluidor mass INNER EAR STRUCTURES: Normal vestibule and cochlea. Normal aqueducts. Normal semicircular canals. INTERNAL AUDITORY CANAL: Normal bony canal without narrowing orwidening. No calcified or ossified masses. TEMPOROMANDIBULAR JOINT: Normal. MASTOID AIR CELLS: No fluid or mucosal thickening. CENTRAL SKULL BASE: Normal foramina. No lytic or blastic lesions. INFERIOR BRAIN: Limited view. No acute findings. LIMITED VIEW OF PARANASAL SINUSES IN THE FIELD OF VIEW: Well-aerated. OTHER: No other significant finding. IMPRESSION: Unremarkable CT of the temporal bones. No findings to indicate semicircular canal dehiscence. THIS IS AN ELECTRONICALLY VERIFIED FINAL REPORT 07/23/2024 3:18 PM - Electronically signed by Jayne LEE T: Report ID: [id number] Reading Location: [place] [address] Naun Seo II, MD IMG CT PROCEDURES Final R esult * (ABNORMAL) CBC with auto differential (05/26/2024 8:02 AM COUNTER SUPERVISOR) WBC 6.4 3.8 - 10.8 Thousand/u L [facility] RBC, POC 4.29 3.80 - 5.10 Million/uL [facility] Hgb 14.8 11.7 - 15.5 g/dL [facility] Hct 45.0 35.0 - 45.0 % [facility] MCV 104.9(H) 80.0 - 100.0 fL [facility] MCH 34.5(H) 27.0 - 33.0 pg [facility] MCHC 32.9 32.0 - 36.0 g/dL [facility] Comment: For adults, a slight decrease in the calculated MCHC value (in the range of 30 to 32 g/dL) is most likely not clinically significant; however, it should be interpreted with caution in correlation with other red cell parameters and the patient's clinical condition. Rdw 12.4 11.0 - 15.0 % [facility] Platelets 211 140 - 400 Thousand/u L [facility] MPV 10.5 7.5 - 12.5 fL [facility] Neutrophils, abs 2,701 1,500 - 7,800 cells/uL [facility] Lymphocytes, abs 3,027 850 - 3,900 cells/uL [facility] Monocyte abs 531 200 - 950 cells/uL [facility] Eosinophils, abs 109 15 - 500 cells/uL [facility] Basophils, abs 32 0 - 200 cells/uL [facility] Neutrophils 42.2 % [facility] Lymphocyte pct 47.3 % [facility] Monocytes 8.3 % [facility] Eosinophils 1.7 % [facility] Basophils 0.5 % [facility] Blood 05/26/2024 8:02 AM COUNTER SUPERVISOR 05/26/2024 8:04 AM COUNTER SUPERVISOR Narrative [facility] - 05/26/2024 4:57 PM COUNTER SUPERVISOR FASTING:YES FASTING: YES Mica Saavedra [employer]BER LAB BLOOD ORDERABLES Final Result [facility] [address] [place] [address] * (ABNORMAL) Comprehensive metabolic panel (05/26/2024 8:02 AM COUNTER SUPERVISOR) Pathologist [facility] Glucose 108(H) 65 - 99 mg/dL [facility] Comment: Fasting reference interval For someone without known diabetes, a glucose value between 100 and 125 mg/dL is consistent with prediabetes and should be confirmed with a follow-up test. BUN 13 7 - 25 mg/dL [facility] Creatinine 0.98 0.50 - 1.05 mg/dL [facility] eGFR 65 > OR = 60 mL/min/1.7 3m2 [facility] BUN/creat ratio SEE NOTE: (calc) [facility] Comment: Not Reported: BUN and Creatinine are within reference range. Sodium 141 135 - 146 mmol/L [facility] Potassium, pl 4.1 3.5 - 5.3 mmol/L [facility] Chloride 105 98 - 110 mmol/L [facility] CO2 31 20 - 32 mmol/L [facility] Calcium 9.6 8.6 - 10.4 mg/dL [facility] Protein, sr 6.7 6.1 - 8.1 g/dL [facility] Albumin 4.3 3.6 - 5.1 g/dL [facility] GLOBULIN 2.4 1.9 - 3.7 g/dL (calc) [facility] Alb/glob ratio 1.8 1.0 - 2.5 (calc) [facility] Bilirubin, total 0.6 0.2 - 1.2 mg/dL [facility] Alk phos 67 37 - 153 U/L [facility] AST 24 10 - 35 U/L [facility] ALT (SGPT) 21 6 - 29 U/L [facility] Blood 05/26/2024 8:02 AM COUNTER SUPERVISOR 05/26/2024 8:04 AM COUNTER SUPERVISOR Narrative [facility] - 05/26/2024 4:57 PM COUNTER SUPERVISOR FASTING:YES FASTING: YES Mica Saavedra NP LAB BLOOD ORDERABLES Final Result [facility] [address] [place] [address] * Serum Hepatitis C ab (07/05/2016 9:03 AM COUNTER SUPERVISOR) HCV ab Nonreactive CDR HIST ORICAL RESULTS Serum 07/05/2016 9:03 AM COUNTER SUPERVISOR Narrative CDR HISTORICAL RESULTS - 07/06/2016 4:10 AM COUNTER SUPERVISOR Interpretive Data Positive results should be confirmed by a molecular method. If positive, a second separately collected sample should be submitted for Hepatitis C Virus (HCV) RNA Detection and Quantitation by Real-Time Reverse Extrusion Line Operator-PCR (RT-PCR). Current interpretive data was last revised on 2016. Mica Saavedra NP LAB BLOOD ORDERABLES Final Result CDR HISTORICAL RESULTS from Last 3 Months or Most Recently Relevant to Health Maintenance Insurance [facility] FEDERAL Member Subscriber Plan / Payer (Ef fective 2015-Present) Name:Catherine Velázquez Relation to Subscriber:Spouse Name:PETE VELÁZQUEZ Date of :1961 (Home) Address: [address] [place] [address] Payer ID:[id number] (NAIC) Group ID:[id number] Type:BC ALLIANCE Address: [address] [place] [address] [facility] ACCESS [facility] FEDERAL Member Subscriber Plan / Payer (Ef fective 2015-Present) Name:VelázquezMary AnneCatherine R Relation to Subscriber:Spouse Name:PETE VELÁZQUEZ C Date of :1961 (Home) Address: [address] [place] [address] Payer ID:[id number] (NAIC) Group ID:[id number] Type:[employer] ALLIANCE Address: [address] [place] [address] Care Teams Armed Custom Protection Officer Relationship Specialty Start Date End Date Jossie Burks PA [address] [address] PCP - General Physician Head Of Cytogenetics 10/04/22
--- OUTSIDE RECORDS SUMMARY | 2024-08-24 09:18 | XMS_ITS | Clinical Summary ---
Author Organization [facility] Address [address] [place] [address] Care Team Providers Care Business Services Coordinator Name Role Phone Jossie Burks Primary Care Provider [phone] Allergies Active Allergy Reactions Criticality Noted Date [...] THE MORNING ON AN EMPTY STOMACH Active pswkvcqa-[id number]-f errous fumarate 9 mg iron/15 mL liquid [...] spine with radiculopathy, cerv ical region 12/23/2011 Encounters Date Type Department Care Team Description 08/23/2024 10:30 AM CDT Lab [facility] [address] [place] [address] High risk medication use; Rheumatoid arthritis involving multiple sites with positive rheumatoid factor (HCC); Elevated MCV; Other fatigue 08/23/2024 10:00 AM CDT Office Visit [facility] Rheumatology [address] 2[address] [place] [address] Mica Saavedra NP Rheumatoid arthritis involving multiple sites with positive rheumatoid factor (HCC) (Primary Dx); High risk medication use; Elevated MCV; Other fatigue 07/23/2024 7:17 AM CDT - 07/23/2024 11:59 PM CDT [facility] [address] [place] [address] Mixed conductive and sensorineural hearing loss of right ear with restricted hearing of left ear Discharge Disposition: Discharge to home or self care 07/23/2024 Results Follow-Up [facility] Otolaryngology [address] [place] [address] Naun Seo II, MD 07/09/2024 Telephone [facility] Otolaryngology [address] [place] [phone] Josselin Buenrostro LPN Steroids didn't help 06/28/2024 9:00 AM EDUCATIONAL TECHNOLOGY SPECIALIST Office Visit [facility] Otolaryngology [address] [place] [phone] Naun Seo II, MD Dysfunction of right eustachian tube (Primary Dx); Mixed conductive and sensorineural hearing loss of right ear with restricted hearing of left ear 06/28/2024 8:30 AM EDUCATIONAL TECHNOLOGY SPECIALIST Procedure visit [facility] Otolaryngology [address] [place] [phone] Lindsay Campos Sensorineural hearing loss (SNHL) of both ears (Primary Dx) from Last 3 Months Immunizations Immunization Administration Dates Next Due Influenza, Quadrivalent, Radha l Culture-based MDCK, Preservative Free, Antibiotic Free, Intramuscular 03/17/2018 Influenza, Quadrivalent, Spl it, Intramuscular 02/14/2017,06/11/2016 Influenza, Trivalent, IM (MDV) 01/28/2014,2012,04/10/2011 Influenza, Trivalent, Preser vative Free, Intramuscular 02/14/2017,02/10/2015 Td, adsorbed 04/05/2009 Surgical History Surgery Date Site/Laterality Comments IN APPENDECTOMY Appendectomy - (Added by TW Conv) IN CHOLECYSTECTOMY Cholecystectomy - (Added by TW Conv) ROTATOR CUFF REPAIR Rotator Cuff Repair - (Added by TW Conv) IN LIG/TRNSXJ FLP TUBE ABDL/ VAG APPR UNI/BI Tubal Ligation - (Added by TW Conv) IN EXC CYST/ABERRANT BREAST TISSUE OPEN 1/> LESION Breast Surgery Lumpectomy - (Added by TW Conv) NECK SURGERY Neck Surgery - anterior cervical dicsectomy nd fusion 12/17/2016 (Added by TW Conv) FLUORO GUIDED ASPIRATION SHOULDER LEFT 12/30/2017 Left Medical History Medical History Date Comments Neuropathy Ft Hyperlipidemia Migraines Hypothyroidism Degeneration of spine Depression IBS (irritable bowel syndrome) Vertigo Allergies Autoimmune disease Ear problems Family History Medical History Relation Name Comments Diabetes Brother Arthritis Father Family history of arthritis - (Added by TW Conv)/Family history of arthritis - (Added by TW Conv) Heart disease Father Family history of cardiac disorder - (Added by TW Conv)/Family history of cardiac disorder - (Added by TW Conv) Cancer Maternal Grandmother Arthritis Mother Family history of arthritis - (Added by TW Conv)/Family history of arthritis - (Added by TW Conv) Heart disease Mother Family history of cardiac disorder - (Added by TW Conv)/Family history of cardiac disorder - (Added by TW Conv) Hypertension Mother Family history of hypertension - (Added by TW Conv)/Family history of hypertension - (Added by TW Conv) Relation Name Status Comments Brother Alive Father Maternal Grandmother Mother Social History Tobacco Use Types Packs/Day Years Used Date Smoking Tobacco: Former Cigarettes Passive Smoke Exposure: Past Smokeless Tobacco: Never Tobacco Cessation:Counseling Given: Not Answered Comments Unknown Sex and Gender Information Value Date Recorded Sex Assigned at Not on file Legal Sex Female 5:09 AM EDUCATIONAL TECHNOLOGY SPECIALIST Gender Identity Not on file Sexual Orientation Not on file Obstetrics History Last Filed Vital Signs Vital Sign Reading Time Taken Comments Blood Pressure 120/79 08/23/2024 9:53 AM CDT Pulse 70 08/23/2024 9:53 AM CDT Temperature 37 C (98.6 F) 08/23/2024 9:53 AM CDT Respiratory Rate 18 06/28/2024 8:59 AM EDUCATIONAL TECHNOLOGY SPECIALIST Oxygen Saturation 98% 08/23/2024 9:53 AM CDT Inhaled Oxygen Concentration - - Weight 81.6 kg (180 lb) 08/23/2024 9:53 AM CDT Height 167.6 cm (5' 6 ) 08/23/2024 9:53 AM CDT Body Mass Index 29.05 08/23/2024 9:53 AM CDT Plan of Treatment Health Maintenance Due Date Last Done Comments Cervical Cancer Screening 1961 Colon Cancer Screening-Colonoscopy 1961 Depression Screening 1961 Hepatitis B Screening 1979 Regular Well Visit/Exam 18-64 1979 Breast Cancer Screening-Mammogram 03/09/2021 020, 01/30/2018 Covid-19 Vaccine (2023-2 5 season) 2024 01/03/2021, 08/13/2020, 07/20/2020 Pneumococcal vaccine <65 (3 of 3 - PPSV23, PCV20 or PCV21) 06/19/2026 06/19/2021, 05/05/2021, 04/04/2021 DTaP/Tdap/Td Vaccine (4 - Td or Tdap) 07/20/2031 07/19/2021, 08/22/2020, 08/01/2011, Additional history exists Hepatitis C Screening Completed 07/05/2016 Zoster Vaccine Completed 09/13/2021, 07/10/2021 Influenza Vaccine Completed 02/10/2024, , 02/06/2022, Additional history exists Procedures Procedure Name Priority Date/Time Associated Diagnosis [...] COMPREHENSIVE METABOLIC PANEL Routine 05/26/2024 8:02 AM EDUCATIONAL TECHNOLOGY SPECIALIST High risk medication use CBC WITH AUTO DIFFERENTIAL Routine 05/26/2024 8:02 AM EDUCATIONAL TECHNOLOGY SPECIALIST High risk medication use SERUM HEPATITIS C AB Routine 07/05/2016 9:03 AM EDUCATIONAL TECHNOLOGY SPECIALIST from Last 3 Months or Most Recently [...] Saavedra NP LAB BLOOD ORDERABLES Final Result [facility] [place] [address] * Differential, auto (08/23/2024 12:11 PM CDT) Neutrophil abs 2.68 1.50 - 6.50 K/cumm Imm gran abs 0.02 0.00 - 0.10 K/cumm [facility] Lymphocyte abs 2.87 0.80 - 3.30 K/cumm [facility] Monocyte abs 0.60 0.20 - 0.80 K/cumm [facility] Eosinophil abs 0.11 0.00 - 0.50 K/cumm [facility] Basophil abs 0.04 0.00 - 0.10 K/cumm [facility] Neutrophil pct 42.5 % [facility] Comment: Interpretive Data Percent cell count reference ranges are not reported, since discordance with absolute values may lead to misinterpretation of CBC data. Current Interpretive Data was last revised on 2017. Imm gran pct 0.3 % [facility] Comment: Interpretive Data Percent cell count reference ranges are not reported, since discordance with absolute values may lead to misinterpretation of CBC data. Current Interpretive Data was last revised on 2017. Lymphocyte pct 45.4 % [facility] Comment: Interpretive Data Percent cell count reference ranges are not reported, since discordance with absolute values may lead to misinterpretation of CBC data. Current Interpretive Data was last revised on 2017. Monocyte pct 9.5 % [facility] Comment: Interpretive Data Percent cell count reference ranges are not reported, since discordance with absolute values may lead to misinterpretation of CBC data. Current Interpretive Data was last revised on 2017. Eosinophil pct 1.7 % [facility] Comment: Interpretive Data Percent cell count reference ranges are not reported, since discordance with absolute values may lead to misinterpretation of CBC data. Current Interpretive Data was last revised on 2017. Basophil pct 0.6 % [facility] Comment: Interpretive Data Percent cell count reference ranges are not reported, since discordance with absolute values may lead to misinterpretation of CBC data. Current Interpretive Data was last revised on 2017. Blood 08/23/2024 12:1 1 PM CDT 08/23/2024 1:40 PM CDT us Mica Saavedra NP LAB BLOOD ORDERABLES Final Result [facility] [place] [address] * (ABNORMAL) CBC with auto differential (08/23/2024 12:11 PM CDT) [facility] WBC 6.32 3.80 - 9.90 K/cumm Hgb 13.8 11.9 - 15.5 g/dL [facility] Hct 40.2 35.6 - 45.5 % [facility] Plt 233 150 - 400 K/cumm [facility] MPV 10.3 9.1 - 12.3 fL [facility] RBC 3.94 3.90 - 5.20 M/cumm [facility] MCV 102.0(H) 81.3 - 96.4 fL [facility] MCH 35.0(H) 27.1 - 33.3 pg [facility] MCHC 34.3 32.3 - 35.7 g/dL [facility] RDW CV 13.2 11.1 - 14.9 % [facility] RDW SD 49.6(H) 35.7 - 48.1 fL [facility] NRBC abs 0.00 0.00 - 0.01 K/cumm [facility] Blood 08/23/2024 12:1 1 PM CDT 08/23/2024 1:40 PM CDT us Mica Saavedra NP LAB BLOOD ORDERABLES Final Result Performing Organization Address City/[facility]/[place] [address] * Vitamin D 25 hydroxy (08/23/2024 12:11 PM CDT) [facility] Vitamin D 25-OH 48 30 - 80 ng/mL Blood 08/23/2024 12:1 1 PM CDT 08/23/2024 1:48 PM CDT Mica Saavedra NP LAB BLOOD ORDERABLES Final [place] [address] * Erythrocyte sedimentation rate (08/23/2024 12:11 PM CDT) Pathologist [facility] Erythrocyte sedimentation rate 10 1 - 30 mm/hr Blood 08/23/2024 12:1 1 PM CDT 08/23/2024 1:40 PM CDT us Mica Saavedra NP LAB BLOOD ORDERABLES Final Result [facility] [place] [address] * CRP (acute phase) (08/23/2024 12:11 PM CDT) [facility] CRP <0.5 <=10.0 mg/L Blood 08/23/2024 12:1 1 PM CDT 08/23/2024 1:48 PM CDT us Mica Saavedra NP LAB BLOOD [place] [address] * Folate (08/23/2024 12:11 PM CDT) [facility] Folic acid >20.0 >=5.0 ng/mL Blood 08/23/2024 12:1 1 PM CDT 08/23/2024 1:48 PM CDT Mica Saavedra NP LAB BLOOD [place]AB[place] [address] * (ABNORMAL) Vitamin B12 (08/23/2024 12:11 PM CDT) Pathologist [facility] Vitamin B12 >2,000(H) 230 - 1,250 pg/mL Blood 08/23/2024 12:1 1 PM CDT 08/23/2024 1:48 PM CDT Mica Saavedra ALLOY WEIGHER LAB BLOOD ORDERABLES Final Result [facility] [place] [address] * (ABNORMAL) Comprehensive metabolic panel (08/23/2024 12:11 PM CDT) Sodium 146(H) 135 - 145 mmol/L Potassium, pl 4.3 3.3 - 4.9 mmol/L [facility] Chloride 108 97 - 110 mmol/L [facility] CO2 29 22 - 32 mmol/L [facility] Anion gap 9 2 - 15 mmol/L [facility] BUN 12 6 - 25 mg/dL [facility] Creatinine 1.02 0.60 - 1.10 mg/dL [facility] Glucose 91 70 - 199 mg/dL [facility] Comment: Interpretive Data Fasting glucose >/= [...] 2022. Calcium 9.8 8.5 - 10.3 mg/dL [facility] Bilirubin, total 0.4 0.1 - 1.2 mg/dL [facility] Protein, pl 6.8 6.5 - 8.5 g/dL [facility] Albumin 4.3 3.5 - 5.0 g/dL [facility] Alk phos 81 40 - 130 Units/L [facility] ALT 22 7 - 45 Units/L [facility] AST 30 10 - 45 Units/L [facility] Blood 08/23/2024 12:1 1 PM CDT 08/23/2024 1:48 PM CDT us Mica Saavedra ALLOY WEIGHER LAB BLOOD ORDERABLES Final Result [facility] [place] [address] * CT Temporal Bones WO Contrast (07/23/2024 [...] Jayne Diaz M.D. LC T: Report ID: [id number] Reading Location: [id number] Procedure Note Amena Diaz MD - 07/23/2024 [...] - Electronically signed by Jayne Diaz M.D. T: Report ID: [id number] Reading Location: [id number] Naun Seo II, MD IMG CT PROCEDURES Final R esult * (ABNORMAL) CBC with auto differential (05/26/2024 8:02 AM EDUCATIONAL TECHNOLOGY SPECIALIST) WBC 6.4 3.8 - 10.8 Thousand/u L [...] abs 2,701 1,500 - 7,800 cells/uL [facility] Lymphocytes, abs 3,027 850 - 3,900 cells/uL [facility] Monocyte abs 531 200 - 950 cells/uL [facility] Eosinophils, abs 109 15 - 500 cells/uL [facility] Basophils, abs 32 0 - 200 cells/uL [facility] Neutrophils 42.2 % [facility] Lymphocyte pct 47.3 % [facility] Monocytes 8.3 % [facility] Eosinophils 1.7 % [facility] Basophils 0.5 % [facility] Blood 05/26/2024 8:02 AM EDUCATIONAL TECHNOLOGY SPECIALIST 05/26/2024 8:04 AM EDUCATIONAL TECHNOLOGY SPECIALIST Narrative [facility] - 05/26/2024 4:57 PM EDUCATIONAL TECHNOLOGY SPECIALIST FASTING:YES FASTING: YES us Mica Saavedra ALLOY WEIGHER LAB BLOOD ORDERABLES Final Result [facility] [address] [place] [address] * (ABNORMAL) Comprehensive metabolic panel (05/26/2024 8:02 AM EDUCATIONAL TECHNOLOGY SPECIALIST) Pathologist [facility] Glucose 108(H) 65 - 99 mg/dL [facility] Comment: Fasting reference interval For someone without known diabetes, a glucose value between 100 and 125 mg/dL is consistent with prediabetes and should be confirmed with a follow-up test. BUN 13 7 - 25 mg/dL [facility] Creatinine 0.98 0.50 - 1.05 mg/dL [facility] eGFR 65 > OR = 60 mL/min/1.7 3m2 [facility] BUN/creat ratio SEE NOTE: 6 - 22 (calc) [facility] Comment: Not Reported: BUN and Creatinine are within reference range. Sodium 141 135 - 146 mmol/L [facility] Potassium, pl 4.1 3.5 - 5.3 mmol/L [facility] Chloride 105 98 - 110 mmol/L [facility] CO2 31 20 - 32 mmol/L [facility] Calcium 9.6 8.6 - 10.4 mg/dL [facility] Protein, sr 6.7 6.1 - 8.1 g/dL [facility] Albumin 4.3 3.6 - 5.1 g/dL [facility] GLOBULIN 2.4 1.9 - 3.7 g/dL (calc) [facility] Alb/glob ratio 1.8 1.0 - 2.5 (calc) [facility] Bilirubin, total 0.6 0.2 - 1.2 mg/dL [facility] Alk phos 67 37 - 153 U/L [facility] AST 24 10 - 35 U/L [facility] ALT (SGPT) 21 6 - 29 U/L [facility] Blood 05/26/2024 8:02 AM EDUCATIONAL TECHNOLOGY SPECIALIST 05/26/2024 8:04 AM EDUCATIONAL TECHNOLOGY SPECIALIST Narrative [facility] - 05/26/2024 4:57 PM EDUCATIONAL TECHNOLOGY SPECIALIST FASTING:YES FASTING: YES Mica Saavedra NP LAB BLOOD ORDERABLES Final Result [facility] [address] [place] [address] * Serum Hepatitis C ab (07/05/2016 9:03 AM EDUCATIONAL TECHNOLOGY SPECIALIST) HCV ab Nonreactive CDR HIST ORICAL RESULTS Serum 07/05/2016 9:03 AM EDUCATIONAL TECHNOLOGY SPECIALIST Narrative CDR HISTORICAL RESULTS - 07/06/2016 4:10 AM EDUCATIONAL TECHNOLOGY SPECIALIST Interpretive Data Positive results should be confirmed by a molecular method. If positive, a second separately collected sample should be submitted for Hepatitis C Virus (HCV) RNA Detection and Quantitation by Real-Time Reverse Paper Mill Manager-PCR (RT-PCR). Current interpretive data was last revised on 2016. Mica Saavedra ALLOY WEIGHER LAB BLOOD ORDERABLES Final Result CDR HISTORICAL RESULTS from Last 3 Months or Most Recently Relevant to Health Maintenance Insurance [facility] FEDERAL Member Subscriber Plan / Payer (Ef fective 2015-Present) Name:Catherine Velázquez R Relation to Subscriber:Spouse Name:PETE VELÁZQUEZ Date of :1961 (Home) Address: [address] [place] [address] Payer ID:[id number] (NAIC) Group ID:[id number] Type:[employer] ALL[employer] Address: [phone] [place] [address] [facility] FEDERAL Member Subscriber Plan / Payer (Ef fective 2015-Present) Name:Eber Catherine R Relation to Subscriber:Spouse Name:PETE VELÁZQUEZ Date of :1961 (Home) Address: [address] [place] [address] Payer ID:[id number] (NAIC) Group ID:[id number] Type:[employer] ALL[employer] Address: [facility] [address] [place] [address] Care Teams Business Services Coordinator Relationship Specialty Start Date End Date Jossie Burks PA [address] [address] PCP - General Physician Piano Bench Assembler 10/04/22
--- OUTSIDE RECORDS SUMMARY | 2024-08-24 09:18 | XMS_ITS | Clinical Summary ---
Author Organization [facility] Address [address] [place] [address] Care Team Providers Care Ordained Minister Name Role Phone Kenia Doll HEARING AID REPAIR TECHNICIAN Primary Care Provider [phone] Allergies Active Allergy Reactions Criticality Noted Date Comments Ciprofloxacin Rash Medium 12/20/2011 Erythromycin GI Upset 12/20/2011 Meperidine Rash Low 12/20/2011 Penicillins Rash Medium 12/20/2011 Sulfa Antibiotics GI Upset 05/26/2013 Tramadol Rash Medium 03/03/2013 Medications levothyroxine 50 MCG tablet Take 50 mcg by mouth every morning. Active folic acid 1 MG tablet Take 2 mg by mouth daily. Active methotrexate 2.5 MG tablet Take 2.5 mg by mouth once a week. 8 tabs Active multi vitamin/minerals tablet Take 1 tablet by mouth daily. Active biotin 300 MCG Tab Take 1 tablet by mouth daily. 5000 mcg Active hydroxychloroqui ne 200 MG tablet Take by mouth daily. Active PARoxetine 30 MG tablet Take 30 mg by mouth every morning. Active ENBREL SURECLICK 50 MG/ML Solution Auto-injector injection 10/25/2020 Active calcium carbonate (CALCIUM 600) 600 MG tablet Take 600 mg by mouth daily. Active cholecalciferol (VITAMIN D3) 125 MCG (5000 UT) Tab Take 5,000 Units by mouth daily. Active fluticasone propionate 50 MCG/ACT nasal spray 1 spray by Nasal route daily. Active Family History Relation Status Comments Father Mother Social History Tobacco Use Types Packs/Day Years Used Date Smoking Tobacco: Never Smokeless Tobacco: Never Alcohol Use Standard Drinks/Week Comments Yes 0 (1 standard drink = 0.6 oz pur e alcohol) occasional Comments No Sex and Gender Information Value Date Recorded Sex Assigned at Not on file Legal Sex Female 6:39 PM CDT Gender Identity Not on file Sexual Orientation Not on file Last Filed Vital Signs Vital Sign Reading Time Taken Comments Blood Pressure 122/70 10/31/2020 9:31 AM CDT Pulse 75 10/31/2020 9:31 AM CDT Temperature 36.7 C (98 F) 10/31/2020 9:14 AM CDT Respiratory Rate 18 10/31/2020 9:31 AM CDT Oxygen Saturation 90% 10/31/2020 9:31 AM CDT Inhaled Oxygen Concentration - - Weight 74.8 kg (165 lb) 10/23/2020 11:43 AM CDT Height 167.6 cm (5' 6 ) 10/23/2020 11:43 AM CDT Body Mass Index 26.63 10/23/2020 11:43 AM CDT Plan of Treatment Health Maintenance Due Date Last Done Comments Cervical Cancer Screening Pa p Smear (Age 30 to 64) Every 3 Years 1961 Annual Physical 1964 Hepatitis C 1979 Cervical Cancer Screening Pa p with HPV Testing (Age 30 to 64) Every 5 Years 1991 Cervical Cancer Screening wi th HPV 1991 Mammogram Screening 2001 Pneumococcal Vaccine: 50+ Years (1 of 1 - PCV) 2011 Zoster Vaccines (1 of 2) 2011 DTaP, Tdap and Td Vaccines ( 2 - Td or Tdap) 07/31/2021 08/01/2011, 04/05/2009 COVID-19 Vaccine (3 - 2023-2 5 season) 2024 08/13/2020, 07/20/2020 Colorectal Cancer Screening Colonoscopy (10 Years) 10/31/2030 10/31/2020, 10/31/2020 RSV Immunization or 60+ Years (1 - 1-dose 75+ series) 2036 Meningococcal B Vaccine Aged Out No l onger eligible based on patient's age to complete this topic Meningococcal Vaccine Aged Out No sung hermelindo eligible based on patient's age to complete this topic RSV Immunizations Under 20 Months Aged Out No longer eligible b ased on patient's age to complete this topic Medical Devices Implanted Type Area Pattern Grader Supervisor Device Identifier Shelf Expiration Date Model / Serial / Lot Neck Description:Screws and metal plate Procedures Procedure Name Priority Date/Time Associated Diagnosis Comments COLONOSCOPY Routine 10/31/2020 8:51 AM CDT from Last 3 Months or Most Recently Relevant to Health Maintenance Results * Colonoscopy (10/31/2020 8:51 AM CDT) Neftali Calix MD - 10/31/2020 8:51 AM CDT Neftali Herman MD 10/31/2020 9:18 AM NEFTALI HERMAN MD, FACG, FACP COLONOSCOPY 10/31/2020 This is a 60-year-old female with history of neck surgery, RA, hypothyroidism, CCx, Appy, hernia repair and tubal ligation who now presents for colonoscopy for screening for colon cancer. GI review of systems is negative. No endocarditis risk factors. Allergies Allergen Reactions Ciprofloxacin Rash Penicillins Rash Tramadol Rash Erythromycin Base Coated [Erythromycin] GI Upset Sulfa Antibiotics GI Upset Meperidine Rash Medications: see list. Family history: negative for colon cancer. VITALS: Stable. LUNGS: Clear. HEART: RRR S1/S2 normal. ABDOMEN: NABS/NT. The procedure of colonoscopy, its indications, alternatives of barium studies and risks including perforation, bleeding, infection, reaction to medication as well as the possible need for blood or surgery were discussed with the patient prior to the procedure. The patient voices understanding, agrees to proceed and provides informed consent. COLONOSCOPY INDICATION: Screening for colon cancer. POST-OP: One polyp removed. SEDATION: Per Anesthesia PREP: Good. With the patient in the left lateral decubitus position, the Olympus [id number] colonoscope was introduced into the rectum and advanced easily to the Terminal Ileum. Careful inspection of the mucosa was made upon insertion and withdrawal of the endoscope. FINDINGS: Terminal ileum: distal 5 cm normal. Cecum, Transverse colon, Descending colon, Sigmoid colon and Rectum including retroflexion normal. Ascending colon: 8 mm sessile polyp removed with cold snare polypectomy without bleed. No masses, AVMs, colitis or diverticulosis seen. No complications, blood loss or implants. ASSESSMENT AND PLAN: One polyp removed: if adenomatous repeat colonoscopy in five years, otherwise screening colonoscopy in 10 years. Thank you for allowing me to care for your patient. She will follow-up with POLLY Doll as needed. Neftali Herman M.D. Cc: POLLY Doll us Neftali Herman MD GI PROCEDURE ORDERABLES Fin al Result from Last 3 Months or Most Recently Relevant to Health Maintenance Insurance [facility] Care Teams Ordained Minister Relationship Specialty Start Date End Date Kenia Doll FNP PCP - General FAMILY MEDICINE SPORTS MEDICINE 10/25/20
--- OUTSIDE RECORDS SUMMARY | 2024-08-24 09:18 | XMS_ITS | Encounter Summary ---
Author Organization [facility] Address [address] [place] [address] Phone Care Team Providers Care Railroad Track Repair Supervisor Name Role Phone Jossie Burks Primary Care Provider [phone] Reason for Visit * Reason Onset Date Comments Test Results 07/23/2024 Encounter Details Date Type Department Care Team (Late st Contact Info) Description 07/23/2024 Results Follow-Up [facility] Otolaryngology [address] [place] [address] Naun Seo II, MD [address] [place] [address] Social History Tobacco Use Types Packs/Day Years Used Date Smoking Tobacco: Former Cigarettes Passive Smoke Exposure: Past Smokeless Tobacco: Never Comments Unknown Sex and Gender Information Value Date Recorded Sex Assigned at Not on file Legal Sex Female 5:09 AM GRAIN GRADER Gender Identity Not on file Sexual Orientation Not on file documented as of this encounter Miscellaneous Notes * Telephone Encounter - Justyna West - 07/26/2024 9:11 AM CDT Called and left a message for Catherine letting her know that her results of er CT scan were normal and that other than the medications there was not anything else to do for her. Dr Seo would like to see her in 6 months for an audiogram and follow up appointment to keep an eye on things. Forwarded follow up request to the schedulers. * Telephone Encounter - Justyna West - 07/26/2024 9:09 AM CDT ----- Message from Naun Seo MD sent at 07/23/2024 4:10 PM CDT ----- Please call the patient regarding her test results. Call and let her know that the CT of the temporal bones was normal. Given that fact, other than themedicines I do not know that there is a lot to do for her ear. I would recommend however that she have a follow up in 6 months with audiogram to keep an eye on this and make sure there is progressionof her hearing loss documented in this encounter Plan of Treatment Not on file documented as of this encounter Visit Diagnoses Not on filedocumented in this encounter Care Teams Railroad Track Repair Supervisor Relationship Specialty Start Date End Date Jossie Burks PA [address] [address] PCP - General Physician Director [employer] 10/04/22 documented as of this encounter
== END 2024-08-24 08:49 | disposition home or self-care (01) ==
PROVIDERS: Visit Provider Physician Assistant
DX: Z12.31 Encounter for screening mammogram for malignant neoplasm of breast (principal)
CPT/HCPCS: 77063; 77067